=== PATIENT | male | born 1965 | race Caucasian/White ===

== ENCOUNTER 2022-01-14 20:29 | Inpatient (IN) | payer MEDICARE, MEDICAID, SELFPAY ==
[2022-01-14] VITALS (10 sets, daily range): BP systolic 121–147; BP diastolic 62–85; PULSE 100–109; RESP 12–20; TEMP 37; O2SAT 92–100; BMI 37.2
--- NOTE | 2022-01-14 20:49 | DI.RAD.S_ITS ---
PROCEDURE: XR CHEST 1V INDICATIONS: palpitations TECHNIQUE: One view of the chest was acquired. COMPARISON: [facility], CR, XR CHEST 1 VIEW, 01/12/2022, 13:21. FINDINGS: Surgical changes and devices: Left clavicle ORIF plate. Lungs and pleura: Lungs are clear. No pleural effusions or pneumothorax. Mediastinum: Mediastinal contours appear normal. Heart size is normal. Bones and chest wall: No suspicious bony lesions. Overlying soft tissues appear unremarkable. IMPRESSION: No acute cardiopulmonary process demonstrated radiographically. Dictated by: Denton Chairez M.D. on 01/14/2022 at 21:11 Approved by: Denton Chairez M.D. on 01/14/2022 at 21:12
--- NOTE | 2022-01-14 20:49 | DI.CT.S_ITS ---
PROCEDURE: CT HEAD/BRAIN WO CON INDICATIONS: fall with head injury on thinners TECHNIQUE: Noncontrast 4.5 mm thick angled axial sections acquired from the foramen magnum to the vertex, with coronal and sagittal reformats. For radiation dose reduction, the following was used: automated exposure control, adjustment of mA and/or kV according to patient size. COMPARISON: [facility], CT, CT HEAD WITHOUT CONTRAST, 01/12/2022, 13:14. FINDINGS: Image quality: Excellent. CSF spaces: Basal cisterns are patent. No extra-axial fluid collections. The ventricles are symmetric in size and shape. Brain: No intracranial bleeds or masses. There is cerebral volume loss for age, with resultant ventricular and sulcal prominence. There are periventricular and deep white matter chronic small vessel ischemic changes. There is intracranial internal carotid artery atherosclerosis. Skull and face: Calvarium and visualized facial bones appear intact, without suspicious lesions. Sinuses: Visualized sinuses and mastoids are clear. IMPRESSION: No acute intracranial finding. Moderate global cerebral volume loss and chronic microvascular ischemic changes similar to the prior study. Dictated by: Denton Chairez M.D. on 01/14/2022 at 21:19 Approved by: Denton Chairez M.D. on 01/14/2022 at 21:21
--- NOTE | 2022-01-14 20:56 | DI.RAD.S_ITS ---
PROCEDURE: XR HAND LT MIN 3V INDICATIONS: left thumb / hand pain and swelling from fall TECHNIQUE: 3 views of the hand(s) acquired. COMPARISON: None. FINDINGS: Comminuted, displaced, and angulated fracture of the left 1st metatarsal base involving the metaphysis and proximal diaphysis. There is no obvious intra-articular extension identified. Remaining bones intact. IMPRESSION: Comminuted, displaced, angulated left 1st metatarsal base fracture without definite intra-articular extension demonstrated. Dictated by: Denton Chairez M.D. on 01/14/2022 at 21:12 Approved by: Denton Chairez M.D. on 01/14/2022 at 21:13
--- NOTE | 2022-01-14 20:57 | ED.CHESTPAIN ---
HPI - Chest Pain General Chief Complaint: Chest Pain Stated Complaint: heart palpitations Time Seen by Provider: 01/14/22 20:49 Source: patient Mode of arrival: Ambulatory History of Present Illness HPI narrative: 56-year-old male nonsmoker with extensive alcohol history, atrial fibrillation on anticoagulation presents with agitation and palpitations. He normally drinks upwards of a 0.5 gal of liquor per day and had his last drink at 6:00 a.m.. He is had an extensive alcohol history and been drinking heavily for the past 35 years. He is had withdrawals on multiple occasions that have become quite severe at times including seizures. He is planning to enter an alcohol detox program next week and apparently has a bed waiting for him. Over the course of the day he is become increasingly agitated and fidgety. He is restless and has an increasing resting tremor. He has a headache and thinks he may have mild auditory and visual hallucinations. He has some generalized abdominal pain and occasional vomiting. Earlier today at some point he fell and struck the right side of his head and has an abrasion. Denies any loss of consciousness or neck pain. Additionally he has pain and swelling of his left thumb and states that it has been swollen for a couple of weeks but he thinks he injured it again when falling today. He is activated as a modified trauma given the fall with head injury while on anticoagulation Related Data Previous Rx's Medication Instructions Recorded clonazepam 1 mg tablet 1 mg PO BID ##21 01/23/12 atenolol 100 mg tablet (Tenormin) 100 mg PO Q DAY ##10 06/06/12 Allergies Allergy/AdvReac Type Severity Reaction Status Date / Time Erythromycin Allergy Unknown UNKNOWN Uncoded 09/27/17 12:14 Review of Systems Review of Systems Narrative: GENERAL: See HPI HEENT: Denies sinus pain, ear pain, sore throat, difficulty swallowing, dizziness. RESPIRATORY: Denies dyspnea, cough, wheezing, hemoptysis, sputum. CARDIOVASCULAR: See HPI GASTROINTESTINAL: See HPI : Denies dysuria, frequency, incontinence, hematuria, urinary retention. MUSCULOSKELETAL: See HPI SKIN: Denies rash, skin lesions, or other NEUROLOGIC: See HP PSYCHIATRIC: No concerning psychosocial issues. 12 point review of systems is negative except for those stated above Patient History alcohol intake frequency: 3 or more drinks per day Alcohol type: wine Substance Use Type: does not use Exam Narrative Exam Narrative: GENERAL: [56] year old patient appears older than stated age. Well-developed patient, appears ill, GCS 15 HEAD: Abrasion and contusion on right lateral head without hematoma, no evidence of depressed skull fracture EYES: Pupils equal round and reactive. No hyphema Extraocular motions intact. No scleral icterus. No injection or drainage. ENT: Nose without bleeding, purulent drainage. Throat without erythema, tonsillar hypertrophy or exudate. Airway patent. NECK: Trachea midline. Non tender CARDIOVASCULAR: Tachycardic and irregular rhythm without murmurs, gallops, or rubs. RESPIRATORY: Clear to auscultation. Breath sounds equal bilaterally. No wheezes, rales, or rhonchi. GASTROINTESTINAL: Abdomen soft, non-tender, nondistended. EXTREMITIES: Pain and swelling about left thumb and thenar eminence, no wrist or elbow pain. BACK: Nontender without deformity or crepitance. No flank tenderness. NEURO: AOx3. Cranial nerves 2-12 grossly intact, agitated anxious SKIN: No rash or erythema of visible areas Initial Vital Signs Initial Vital Signs: Vital Signs Temperature 98.6 F 01/14/22 20:40 Pulse Rate 100 H 01/14/22 20:40 Respiratory Rate 16 01/14/22 20:40 Blood Pressure 126/62 01/14/22 20:40 Pulse Oximetry 100 01/14/22 20:40 Oxygen Delivery Method 01/14/22 20:40 Procedures Central Line Placement Right IJ: Time Out Performed: Yes Patient Placed on Monitor/Pulse Ox: Yes MD Prep: mask, gown and gloves Central Line Prep: Chlorhexidine scrub and sterile drapes applied Local Anesthetic: lidocaine 1% Amount of anesthesia used (mL): 3 Ultrasound Used for Placement: Yes Central Line Lumen Inserted: triple Post Procedure: sutured in place, good blood return, all ports aspirated, flushed, capped and sterile dressing applied Post Procedure X-Ray: tip of catheter in good position and no pneumothorax seen Patient Tolerated Procedure: Well Complications: none Orthopedic Splinting/Casting Injury #1: Side: left Upper Extremity Injury Location: hand Upper Extremity Immobilizer: thumb spica Post splinting neuro exam: intact Post splinting vascular exam: intact Placed by: Provider Course Course Course Narrative: [facility] for Alcohol Withdrawal from [facility] on 01/14/2022 All calculations should be rechecked by clinician prior to use RESULT SUMMARY: 21 points Patients with scores >=0 frequently require medication for withdrawal, and may also require admission to the ICU for observation for seizures or development of delirium tremens, and more frequent medication dosing. INPUTS: Nausea/vomiting ?> 4 = Intermittent nausea with dry heaves Tremor ?> 4 = Moderate, with patient's arms extended Paroxysmal sweats ?> 4 = Beads of sweat obvious on forehead Anxiety ?> 4 = Moderately anxious, or guarded, so anxiety is inferred Agitation ?> 0 = Normal activity Tactile disturbances ?> 2 = Mild itching, pin and needles, burning, or numbness Auditory disturbances ?> 1 = Very mild harshness or ability to frighten Visual disturbances ?> 0 = Not present Headache/fullness in head ?> 2 = Mild Orientation/clouding of sensorium ?> 0 = Oriented, can do serial additions Orders Ordered: ED Orders 01/14/22 20:43 EKG-12 Lead Routine 01/14/22 20:49 CT head/brain wo con Stat XR chest 1V Stat 01/14/22 20:56 XR hand LT min 3V Stat 01/14/22 22:25 Complete Blood Count AUTO DIFF Stat Prothrombin Time INR Stat 01/14/22 23:15 Comprehensive Metabolic Panel Stat Lipase Stat NT-proBNP (BNP-Adult 18+) Stat Troponin & CK Cardiac Panel Stat 01/15/22 00:45 Urine Drug Screen, Rapid Stat 01/15/22 01:35 COVID19 -Nasal RAPID/Pre-Proc Stat 01/15/22 05:00 Basic Metabolic Panel Routine Complete Blood Count AUTO DIFF Routine Magnesium Routine Acetaminophen (Acetaminophen 325 Mg Tablet) 650 mg PO Q6HR PRN PRN Reason: Fever/Mild Pain (1-3) Hydrocodone Bitart/Acetaminophen (Hydrocodone/Acet 5/325 Tablet) 1 tab PO Q6HR PRN PRN Reason: Pain, Moderate (4-6) Last Admin: 01/15/22 03:33 Dose: 1 tab Documented By: RF Diphenhydramine HCl (Diphenhydramine 25 Mg Tablet) 25 mg PO Q6HR PRN PRN Reason: Itching Last Admin: 01/15/22 03:33 Dose: 25 mg Documented By: THERESE Folic Acid (Folic Acid 1 Mg Tablet) 1 mg PO DAILY [facility] Heparin Sodium (Porcine) (Heparin 5,000 Unit/Ml Vial) 5,000 unit SUBCUT BID [facility] Thiamine HCl 500 mg/ Sodium (Chloride) 255 mls @ 250 mls/hr IV TID [facility] Stop: 01/17/22 22:02 Last Admin: 01/15/22 04:49 Dose: 250 mls/hr Documented By: THERESE Metoprolol Tartrate (Metoprolol Ir 25 Mg Tablet) 75 mg PO BID [facility] Multivitamins (Multivitamin 1 Tablet) 1 tab PO DAILY [facility] Phenobarbital (Phenobarbital 65 Mg/Ml Vial) 130 mg IV Q30MIN PRN; Protocol PRN Reason: Alcohol Withdrawal Discontinued Medications Atenolol (Atenolol 50 Mg Tablet) 100 mg PO NOW ONE Stop: 01/15/22 01:23 Last Admin: 01/15/22 01:40 Dose: 100 mg Documented By: BECKA Sodium Chloride (Normal Saline 0.9%) 1,000 mls @ 1,000 mls/hr IV BOLUS ONE Stop: 01/14/22 21:48 Last Infusion: 01/15/22 00:43 Dose: 0 mls/hr Documented By: Admin: 01/14/22 22:21 Dose: 1,000 mls/hr Documented By: BECKA Thiamine HCl 200 mg/ Sodium (Chloride) 102 mls @ 408 mls/hr IV NOW ONE Stop: 01/14/22 20:50 Last Infusion: 01/14/22 23:01 Dose: 0 mls/hr Documented By: Admin: 01/14/22 22:26 Dose: 408 mls/hr Documented By: BECKA Sodium Chloride (Normal Saline 0.9%) 1,000 mls @ 1,000 mls/hr IV BOLUS ONE Stop: 01/15/22 02:02 Last Infusion: 01/15/22 02:17 Dose: 1,000 mls/hr Documented By: Admin: 01/15/22 01:40 Dose: 1,000 mls/hr Documented By: BECKA Phenobarbital (Phenobarbital 65 Mg/Ml Vial) 260 mg IV NOW ONE Stop: 01/14/22 20:57 Last Admin: 01/14/22 22:27 Dose: 260 mg Documented By: BECKA Phenobarbital (Phenobarbital 65 Mg/Ml Vial) 130 mg IV NOW ONE Stop: 01/15/22 00:56 Last Admin: 01/15/22 00:59 Dose: 130 mg Documented By: OTILIA Phenobarbital (Phenobarbital 65 Mg/Ml Vial) 130 mg IV Q30MIN PRN PRN Reason: Agitation Phenobarbital (Phenobarbital 32.4 Mg Tablet) 64.8 mg PO NOW ONE Stop: 01/15/22 03:07 Last Admin: 01/15/22 03:33 Dose: 64.8 mg Documented By: RF Consultations Consultation #1: Dr. Pineda happy to be involved in consultation, requests thumb spica place Consultation #2: hospitalist happy to accept Vital Signs Vital signs: Vital Signs - 8 hr 01/14/22 21:30 01/14/22 21:30 01/14/22 22:00 Temperature Pulse Rate 105 H 103 H Respiratory Rate 19 16 Blood Pressure 125/66 Pulse Oximetry 96 99 Oxygen Flow Rate 01/14/22 22:30 01/14/22 22:40 01/14/22 22:40 Temperature Pulse Rate 109 H 106 H Respiratory Rate 19 18 Blood Pressure 147/85 H Pulse Oximetry 98 Oxygen Flow Rate 01/14/22 23:00 01/14/22 23:00 01/14/22 23:30 Temperature Pulse Rate 109 H Respiratory Rate 18 Blood Pressure 133/76 122/68 Pulse Oximetry 94 Oxygen Flow Rate 01/14/22 23:30 01/15/22 00:00 01/15/22 00:00 Temperature Pulse Rate 107 H 110 H Respiratory Rate 20 20 Blood Pressure 116/76 Pulse Oximetry 92 93 Oxygen Flow Rate 01/15/22 00:30 01/15/22 00:31 01/15/22 00:31 Temperature Pulse Rate 106 H 115 H Respiratory Rate 16 17 Blood Pressure 146/81 H Pulse Oximetry 97 98 Oxygen Flow Rate 01/15/22 01:00 01/15/22 01:01 01/15/22 01:20 Temperature Pulse Rate 111 H 110 H Respiratory Rate 23 22 Blood Pressure 181/116 H Pulse Oximetry 99 98 Oxygen Flow Rate 01/15/22 01:20 01/15/22 01:30 01/15/22 01:30 Temperature Pulse Rate 112 H Respiratory Rate 19 Blood Pressure 170/121 H 183/88 H Pulse Oximetry 96 Oxygen Flow Rate 01/15/22 02:15 Temperature 99.1 F Pulse Rate 100 H Respiratory Rate 16 Blood Pressure 144/91 H Pulse Oximetry 99 Oxygen Flow Rate 0 MDM - Chest Pain Lab Data Result diagrams: 01/14/22 22:25 01/14/22 23:15 Labs: Lab Results 01/14/22 01/14/22 01/14/22 Range/Units 22:25 22:25 23:15 WBC 6.8 (4.5-11.0) X10^3/uL RBC 3.87 L (4.5-5.9) X10^6/uL Hgb 11.6 L (13.5-17.5) g/dL Hct 34.5 L (41-53) % MCV 89.2 (80-100) fL MCH 30.1 (26-34) PG MCHC 33.7 (30-36) % RDW 15.6 H (11.6-14.8) % Plt Count 387 (150-400) X10^3/uL Neut % (Auto) 65.2 (50-75) % Lymph % (Auto) 19.7 L (25-40) % [place] % (Auto) 8.3 (3-14) % Eos % (Auto) 5.8 H (2-4) % Baso % (Auto) 1.0 (0-2) % Neut # (Auto) 4400 (5784-8170) /uL Lymph # (Auto) 1300 (8562-9370) /uL [place] # (Auto) 600 (0-900) /uL Eos # (Auto) 400 (0-450) /uL Baso # (Auto) 100 (0-100) /uL PT 12.7 (10.1-12.7) SECONDS INR 1.1 (0.9-1.3) Sodium 139 (137-145) mmol/L Potassium 3.8 (3.4-5.1) mmol/L Chloride 104 (98-107) mmol/L Carbon Dioxide 26 (22-32) mmol/L BUN 3 L (9-20) mg/dL Creatinine 0.47 L (0.66-1.25) mg/dL Estimated GFR > 60 (>60) mL/min BUN/Creatinine Ratio 6.4 (6-22) Glucose 96 (70-100) mg/dL Calcium 7.7 L (8.4-10.2) mg/dL Total Bilirubin 0.3 (0.2-1.3) mg/dL AST 36 (17-59) IU/L ALT 19 (<50) IU/L Alkaline Phosphatase 90 (38-126) U/L Total Creatine Kinase 77 (55-170) U/L CK-MB (CK-2) TNP CK-MB (CK-2) Rel Index TNP Troponin I < 0.012 (0.01-0.034) ng/mL NT-Pro-B Natriuret Pep 612 H (<125) pg/mL Total Protein 6.2 L (6.3-8.2) g/dL Albumin 3.6 (3.5-5.0) g/dL Globulin 2.6 (1.7-4.1) g/dL Albumin/Globulin Ratio 1.4 (1.0-2.8) Lipase 83 (23-300) U/L Nasal Screen MRSA (PCR) (Negative) U Opiates 300ng/mL cut (Negative) Ur Oxycodone Screen (Negative) Urine Methadone Screen (Negative) Ur Barbiturates Screen (Negative) U Tricyclic Antidepress (Negative) Ur Phencyclidine Scrn (Negative) Ur Amphetamines Screen (Negative) U Methamphetamines Scrn (Negative) Ur MDMA Scrn (Ecstasy) (Negative) U Benzodiazepines Scrn (Negative) Urine Cocaine Screen (Negative) U Marijuana (THC) Screen (Negative) SARS-CoV-2 (PCR) (Negative) 01/15/22 01/15/22 01/15/22 Range/Units 00:45 01:35 02:15 WBC (4.5-11.0) X10^3/uL RBC (4.5-5.9) X10^6/uL Hgb (13.5-17.5) g/dL Hct (41-53) % MCV (80-100) fL MCH (26-34) PG MCHC (30-36) % RDW (11.6-14.8) % Plt Count (150-400) X10^3/uL Neut % (Auto) (50-75) % Lymph % (Auto) (25-40) % [place] % (Auto) (3-14) % Eos % (Auto) (2-4) % Baso % (Auto) (0-2) % Neut # (Auto) (1037-3199) /uL Lymph # (Auto) (4237-8873) /uL [place] # (Auto) (0-900) /uL Eos # (Auto) (0-450) /uL Baso # (Auto) (0-100) /uL PT (10.1-12.7) SECONDS INR (0.9-1.3) Sodium (137-145) mmol/L Potassium (3.4-5.1) mmol/L Chloride (98-107) mmol/L Carbon Dioxide (22-32) mmol/L BUN (9-20) mg/dL Creatinine (0.66-1.25) mg/dL Estimated GFR (>60) mL/min BUN/Creatinine Ratio (6-22) Glucose (70-100) mg/dL Calcium (8.4-10.2) mg/dL Total Bilirubin (0.2-1.3) mg/dL AST (17-59) IU/L ALT (<50) IU/L Alkaline Phosphatase (38-126) U/L Total Creatine Kinase (55-170) U/L CK-MB (CK-2) CK-MB (CK-2) Rel Index Troponin I (0.01-0.034) ng/mL NT-Pro-B Natriuret Pep (<125) pg/mL Total Protein (6.3-8.2) g/dL Albumin (3.5-5.0) g/dL Globulin (1.7-4.1) g/dL Albumin/Globulin Ratio (1.0-2.8) Lipase (23-300) U/L Nasal Screen MRSA (PCR) Negative for mrsa (Negative) U Opiates 300ng/mL cut Negative (Negative) Ur Oxycodone Screen Negative (Negative) Urine Methadone Screen Negative (Negative) Ur Barbiturates Screen Positive H (Negative) U Tricyclic Antidepress Negative (Negative) Ur Phencyclidine Scrn Negative (Negative) Ur Amphetamines Screen Negative (Negative) U Methamphetamines Scrn Negative (Negative) Ur MDMA Scrn (Ecstasy) Negative (Negative) U Benzodiazepines Scrn Positive H (Negative) Urine Cocaine Screen Negative (Negative) U Marijuana (THC) Screen Negative (Negative) SARS-CoV-2 (PCR) Negative (Negative) Urine Dip Bedside Urine Glucose Negative Bedside Urine Bilirubin - Negative Bedside Urine Ketone - Negative Urine Specific [place] 1.015 Bedside Urine Occult Blood - Negative Bedside Urine pH 6 Bedside Urine Protein - Negative Bedside Urine Urobilinogen - Negative Bedside Urine Nitrite - Negative Bedside Urine Leukocytes - Negative Esterase ECG Data Interpretation: AFib with rate of 107 no other ectopy or evidence of ischemia. Discharge Plan Departure Patient Disposition: Admitted As Inpatient Clinical Impression: Alcohol withdrawal, Fracture of thumb, left, closed Admit Date/Time: 01/15/22 02:17 Admit Provider: Saul Mcdaniels
[2022-01-14] MEDS: SODIUM CHLORIDE 0.9% 1,000 ML 1000 ML IV (22:21)
[2022-01-14] MEDS: THIAMINE 200 MG in SODIUM CHLORIDE 0.9% 100 ML 408 MG IV (22:26)
[2022-01-14] MEDS: PHENobarbital 65 MG/ML VIAL 260 MG IV (22:27)
[2022-01-14 22:47] LABS: INR 1.1 (0.9-1.3); Prothrombin Time 12.7 SECONDS (10.1-12.7)
[2022-01-14 22:49] LABS: Add Manual Diff / Slide Review NO; Basophils Absolute Auto 100 /uL (0-100); Eosinophils Absolute Auto 400 /uL (0-450); Eosinophils Percent Auto 5.8 % (2-4); Hematocrit 34.5 % (41-53); Hemoglobin 11.6 g/dL (13.5-17.5); Lymphocytes Absolute Auto 1300 /uL (1100-4500); Lymphocytes Percent Auto 19.7 % (25-40); Mean Corpuscular HGB Conc 33.7 % (30-36); Mean Corpuscular Hemoglobin 30.1 PG (26-34); Mean Corpuscular Volume 89.2 fL (80-100); Monocytes Absolute Auto 600 /uL (0-900); Monocytes Percent Auto 8.3 % (3-14); Neutrophils Absolute Auto 4400 /uL (1500-7000); Neutrophils Percent Auto 65.2 % (50-75); Platelet Count 387 X10^3/uL (150-400); Red Blood Cell Count 3.87 X10^6/uL (4.5-5.9); Red Cell Distribution Width 15.6 % (11.6-14.8); White Blood Cell Count 6.8 X10^3/uL (4.5-11.0)
[2022-01-14 23:31] LABS: Alanine Aminotransferase 19 IU/L (<50); Albumin 3.6 g/dL (3.5-5.0); Albumin Globulin Ratio 1.4 (1.0-2.8); Alkaline Phosphatase 90 U/L (38-126); Aspartate Aminotransferase 36 IU/L (17-59); BUN Creatinine Ratio 6.4 (6-22); Bilirubin Total 0.3 mg/dL (0.2-1.3); Blood Urea Nitrogen 3 mg/dL (9-20); Calcium 7.7 mg/dL (8.4-10.2); Carbon Dioxide 26 mmol/L (22-32); Chloride 104 mmol/L (98-107); Creatine Kinase 77 U/L (55-170); Estimated Glomerular Filt Rate > 60 mL/min (>60); Globulin 2.6 g/dL (1.7-4.1); Glucose 96 mg/dL (70-100); HEMOLYSIS < 15 (0-50); Lipase 83 U/L (23-300); Potassium 3.8 mmol/L (3.4-5.1); Sodium 139 mmol/L (137-145); Total Protein 6.2 g/dL (6.3-8.2)
[2022-01-14 23:43] LABS: NT-proBNP (BNP-Adult 18+) 612 pg/mL (<125); Troponin I < 0.012 ng/mL (0.01-0.034)
[2022-01-15] VITALS (66 sets, daily range): BP systolic 93–183; BP diastolic 58–121; PULSE 82–115; RESP 12–39; TEMP 36.1–37.3; O2SAT 92–99; BMI 37.2
[2022-01-15] MEDS: PHENobarbital 65 MG/ML VIAL 130 MG IV ×5 (00:59→23:34)
[2022-01-15 01:05] LABS: UR Morphine/Opiate cutoff 300 Negative (Negative); Ur Creatinine 20 (Normal); Ur Specific Gravity 1.025 (Normal); Urine Amphetamines Negative (Negative); Urine Barbiturates Positive (Negative); Urine Benzodiazepines Positive (Negative); Urine Cocaine Negative (Negative); Urine MDMA Negative (Negative); Urine Methamphetamines Negative (Negative); Urine Phencyclidine Negative (Negative); Urine Tetrahydrocannabinol Negative (Negative); Urine pH 5 (Normal)
[2022-01-15 01:06] LABS: Urine Methadone Negative (Negative); Urine Oxycodone Negative (Negative); Urine Tricyclic Antidepressant Negative (Negative)
[2022-01-15] MEDS: atenoloL 50 MG TABLET 100 MG PO (01:40)
[2022-01-15] MEDS: SODIUM CHLORIDE 0.9% 1,000 ML 1000 ML IV (01:40)
[2022-01-15 01:58] LABS: COVID19 -Nasal RAPID Negative (Negative)
--- NOTE | 2022-01-15 02:40 | P.HP_ITS ---
History of Present Illness History of Present Illness Date Patient Seen: 01/15/22 Time Patient Seen: 02:00 Chief complaint: heart palpitations Narrative: Mr. Christianson is a 56M with long history of alcohol abuse, complicated by seizures, previous intubation, and possibly DTs previously who presents with agitation. He drinks significant amounts of alcohol every day, over a fifth of vodka, and likely over half a gallon of vodka daily. He has been drinking for over 30 years. He has been to rehab. He has had withdrawal with seizures, intubation, and hallucinations in the past. Apparently he has some sort of detox program setup for next week, but he appears currently intoxicated and his details are inconsistent. He decided to stop drinking today at 6am was his last drink. He has become agitated, with nausea, sweaty, headache. He has had occasional vomiting. He has had a fall, but is not clear if it happened today or a few days ago and he hit his head and injured his left thumb. In the ED workup was done, vitals notable for tachycardia. Labs notable for WBC 6.8, hgb 11.6, plts 387. Creatinine 0.47. Chest xray showed no acute process. CT head showed no acute process. Hand xray showed left displaced 1st metatarsal fracture. He was ordered for phenobarb and this provided some relief of his symptoms. Family history: asked and patient stated no family members with medical history Social history: at least a fifth of vodka daily, tobacco use daily Patient History Family & Social History Safety & Behavioral: Feels Safe in Current Yes Environment Been Physically Hurt or No Threatened By a Person Tobacco & Substance use: alcohol intake frequency 3 or more drinks per day Substance Use Type does not use Meds Home Medications and Allergies Home Medications Medication Instructions Recorded Confirmed Type clonazepam 1 mg tablet 1 mg PO BID ##21 01/23/12 01/15/22 Rx atenolol 100 mg tablet (Tenormin) 100 mg PO Q DAY ##10 06/06/12 01/15/22 Rx Allergies Allergy/AdvReac Type Severity Reaction Status Date / Time Erythromycin Allergy Unknown UNKNOWN Uncoded 09/27/17 12:14 Review of Systems Review of Systems Narrative: 14 systems reviewed and negative aside from what is noted in HPI Exam Vital Signs (past 8 hours): - 01/14/22 20:40 01/14/22 20:53 01/14/22 20:53 Temperature 98.6 F Pulse Rate 100 H 109 H Respiratory Rate 16 12 Blood Pressure 126/62 121/72 Pulse Oximetry 100 97 Oxygen Delivery Method Room Air Oxygen Flow Rate 01/14/22 21:00 01/14/22 21:00 01/14/22 21:12 Temperature Pulse Rate 102 H 108 H Respiratory Rate 17 18 Blood Pressure 123/80 Pulse Oximetry 98 98 Oxygen Delivery Method Oxygen Flow Rate 01/14/22 21:12 01/14/22 21:30 01/14/22 21:30 Temperature Pulse Rate 105 H Respiratory Rate 19 Blood Pressure 128/81 125/66 Pulse Oximetry 96 Oxygen Delivery Method Oxygen Flow Rate 01/14/22 22:00 01/14/22 22:30 01/14/22 22:40 Temperature Pulse Rate 103 H 109 H 106 H Respiratory Rate 16 19 18 Blood Pressure Pulse Oximetry 99 98 Oxygen Delivery Method Oxygen Flow Rate 01/14/22 22:40 01/14/22 23:00 01/14/22 23:00 Temperature Pulse Rate 109 H Respiratory Rate 18 Blood Pressure 147/85 H 133/76 Pulse Oximetry 94 Oxygen Delivery Method Oxygen Flow Rate 01/14/22 23:30 01/14/22 23:30 01/15/22 00:00 Temperature Pulse Rate 107 H Respiratory Rate 20 Blood Pressure 122/68 116/76 Pulse Oximetry 92 Oxygen Delivery Method Oxygen Flow Rate 01/15/22 00:00 01/15/22 00:30 01/15/22 00:31 Temperature Pulse Rate 110 H 106 H 115 H Respiratory Rate 20 16 17 Blood Pressure Pulse Oximetry 93 97 98 Oxygen Delivery Method Oxygen Flow Rate 01/15/22 00:31 01/15/22 01:00 01/15/22 01:01 Temperature Pulse Rate 111 H Respiratory Rate 23 Blood Pressure 146/81 H 181/116 H Pulse Oximetry 99 Oxygen Delivery Method Oxygen Flow Rate 01/15/22 01:20 01/15/22 01:20 01/15/22 01:30 Temperature Pulse Rate 110 H Respiratory Rate 22 Blood Pressure 170/121 H 183/88 H Pulse Oximetry 98 Oxygen Delivery Method Oxygen Flow Rate 01/15/22 01:30 01/15/22 02:15 Temperature 99.1 F Pulse Rate 112 H 100 H Respiratory Rate 19 16 Blood Pressure 144/91 H Pulse Oximetry 96 99 Oxygen Delivery Method Oxygen Flow Rate 0 Oxygen Delivery Method Room Air Oxygen Flow Rate 0 Narrative Exam Narrative: GEN: irritable, tremulous HEENT: moist mucous membranes, PERRL, abrasion over right side of forehead NECK: trachea midline, no JVD PULM: clear bilaterally CV: irregular, tachycardic ABD: soft, nontender, nondistended, no organomegaly EXT: warm and well perfused with no edema, left hand and especially thumb swelling NEURO: awake alert, intoxicated, irritable, anxious, no focal deficits Objective Labs Result Diagrams: 01/14/22 22:25 01/14/22 23:15 Labs: Laboratory Results - last 24 hr 01/14/22 01/14/22 01/14/22 22:25 22:25 23:15 WBC 6.8 RBC 3.87 L Hgb 11.6 L Hct 34.5 L MCV 89.2 MCH 30.1 MCHC 33.7 RDW 15.6 H Plt Count 387 Neut % (Auto) 65.2 Lymph % (Auto) 19.7 L [place] % (Auto) 8.3 Eos % (Auto) 5.8 H Baso % (Auto) 1.0 Neut # (Auto) 4400 Lymph # (Auto) 1300 [place] # (Auto) 600 Eos # (Auto) 400 Baso # (Auto) 100 PT 12.7 INR 1.1 Sodium 139 Potassium 3.8 Chloride 104 Carbon Dioxide 26 BUN 3 L Creatinine 0.47 L Estimated GFR > 60 BUN/Creatinine Ratio 6.4 Glucose 96 Calcium 7.7 L Total Bilirubin 0.3 AST 36 ALT 19 Alkaline Phosphatase 90 Total Creatine Kinase 77 CK-MB (CK-2) TNP CK-MB (CK-2) Rel Index TNP Troponin I < 0.012 NT-Pro-B Natriuret Pep 612 H Total Protein 6.2 L Albumin 3.6 Globulin 2.6 Albumin/Globulin Ratio 1.4 Lipase 83 U Opiates 300ng/mL cut Ur Oxycodone Screen Urine Methadone Screen Ur Barbiturates Screen U Tricyclic Antidepress Ur Phencyclidine Scrn Ur Amphetamines Screen U Methamphetamines Scrn Ur MDMA Scrn (Ecstasy) U Benzodiazepines Scrn Urine Cocaine Screen U Marijuana (THC) Screen SARS-CoV-2 (PCR) 01/15/22 01/15/22 00:45 01:35 WBC RBC Hgb Hct MCV MCH MCHC RDW Plt Count Neut % (Auto) Lymph % (Auto) [place] % (Auto) Eos % (Auto) Baso % (Auto) Neut # (Auto) Lymph # (Auto) [place] # (Auto) Eos # (Auto) Baso # (Auto) PT INR Sodium Potassium Chloride Carbon Dioxide BUN Creatinine Estimated GFR BUN/Creatinine Ratio Glucose Calcium Total Bilirubin AST ALT Alkaline Phosphatase Total Creatine Kinase CK-MB (CK-2) CK-MB (CK-2) Rel Index Troponin I NT-Pro-B Natriuret Pep Total Protein Albumin Globulin Albumin/Globulin Ratio Lipase U Opiates 300ng/mL cut Negative Ur Oxycodone Screen Negative Urine Methadone Screen Negative Ur Barbiturates Screen Positive H U Tricyclic Antidepress Negative Ur Phencyclidine Scrn Negative Ur Amphetamines Screen Negative U Methamphetamines Scrn Negative Ur MDMA Scrn (Ecstasy) Negative U Benzodiazepines Scrn Positive H Urine Cocaine Screen Negative U Marijuana (THC) Screen Negative SARS-CoV-2 (PCR) Negative Assessment & Plan Assessment & Plan narrative: Mr. Christianson is a 56M with alcohol abuse, afib, who presents with alcohol withdrawal after abruptly stopping drinking. 1. Alcohol withdrawal and alcohol abuse -has significant alcohol abuse history and is high risk of withdrawal as he acknowledges seizures and being intubated during previous withdrawal -he is interested in detox -he has improved symptomatically with IV phenobarb -IV ativan currently on shortage, will continue with IV phenobarb for withdrawal -ordered MVI, folate, high dose thiamine -SW consult in AM 2. Thumb fracture -secondary to fall -splint to be placed 3. Atrial fibrillation with RVR -acknowledges nonadherence to meds when drinking -check magnesium -has atenolol and metoprolol listed as meds -will continue metoprolol for now 4. Tobacco abuse -declines nicotine patch CODE: Full Proxy: Kenya Zhang, mother I have utilized all available resources to reconcile the patient's home medications. Time Spent With Patient Critical Care time: I spent a total of [] minutes of critical care time on this patient's care today; this time is exclusive of procedural time. Quality MIPS - Admit I confirm the patient?s Advance Care Plan is present, Code status is documented, Surrogate decision maker is in patient?s record [If Yes, STOP here]: Yes
[2022-01-15] MEDS: PHENobarbitaL 32.4 MG TABLET 64.8 MG PO (03:33)
[2022-01-15] MEDS: HYDROCODONE/ACET 5/325 TABLET 1 TAB PO ×3 (03:33→23:04)
[2022-01-15] MEDS: diphenhydrAMINE 25 MG TABLET PO ×3 (03:33→21:10)
--- NOTE | 2022-01-15 04:21 | DI.RAD.S_ITS ---
PROCEDURE: XR CHEST 1V INDICATIONS: R IJ placement TECHNIQUE: One view of the chest was acquired. COMPARISON: [facility], CR, XR CHEST 1 VIEW, 01/12/2022, 13:21. [facility], CR, XR CHEST 1V, 01/14/2022, 20:50. FINDINGS: Surgical changes and devices: A right-sided central line has been placed, with the tip overlying the right atrium, 4-5 cm below the cavoatrial junction. Left clavicle hardware again seen. Lungs and pleura: An incomplete inspiratory result is noted, causing a crowded appearance to the lung markings. No focal infiltrates are seen. No pneumothorax or significant pleural effusions are seen. Mediastinum: Mediastinal contours appear normal. Heart size is normal. Bones and chest wall: No suspicious bony lesions. Overlying soft tissues appear unremarkable. IMPRESSION: The tip of the newly placed right-sided central line overlies the right atrium. Please correlate with procedural intent. If clinically appropriate, please withdraw 6-7 centimeters. Note: No significant discrepancy from the preliminary report. Dictated by: Kenny Machado M.D. on 01/15/2022 at 8:04 Approved by: Kenny Machado M.D. on 01/15/2022 at 8:08
[2022-01-15] MEDS: SODIUM CHLORIDE 0.9% IV ×3 (04:49→20:14)
[2022-01-15] MEDS: THIAMINE IV ×3 (04:49→20:14)
--- NOTE | 2022-01-15 05:32 | PC.NURSE ---
Shift Note: At 0300 patient brought in from ED by stretcher, alert and orientedx4, at room air, vital signs are stable, denies shortness of breath and complaint of pain at left thumb PS 6/10, Dr. Mcdaniels notified. CIWA was done score of 16, patient complained of nausea and headache with some visual hallucinations, slightly restless. Bilateral breath sounds are clear. Active bowel tones. Urinal at bedside. Seizures pad applied, safety precautions maintained, call dozier within reach. At 033, IV access at right wrist got infiltrated and taken out, attempted to reinsert IV line multiple times but unsuccessful. Dr. Mcdaniels notified. At 041, ED Dr Handy came in and inserted a triple lumen cath at right IJ aseptically, central line dressing applied and placement was verified by chest xray and can be use as per Dr. Handy and Dr. Mcdaniels. Will continue to monitor.
[2022-01-15 07:59] LABS: Add Manual Diff / Slide Review NO; Basophils Absolute Auto 200 /uL (0-100); Basophils Percent Auto 3.4 % (0-2); Eosinophils Absolute Auto 400 /uL (0-450); Eosinophils Percent Auto 7.2 % (2-4); Hematocrit 33.4 % (41-53); Hemoglobin 11.4 g/dL (13.5-17.5); Lymphocytes Absolute Auto 1900 /uL (1100-4500); Lymphocytes Percent Auto 33.4 % (25-40); Mean Corpuscular Hemoglobin 30.5 PG (26-34); Mean Corpuscular Volume 89.6 fL (80-100); Monocytes Absolute Auto 600 /uL (0-900); Monocytes Percent Auto 9.5 % (3-14); Neutrophils Absolute Auto 2700 /uL (1500-7000); Neutrophils Percent Auto 46.5 % (50-75); Platelet Count 367 X10^3/uL (150-400); Red Blood Cell Count 3.73 X10^6/uL (4.5-5.9); Red Cell Distribution Width 15.5 % (11.6-14.8); White Blood Cell Count 5.8 X10^3/uL (4.5-11.0)
[2022-01-15] MEDS: FOLIC ACID 1 MG TABLET PO (08:06)
[2022-01-15] MEDS: HEPARIN 5,000 UNIT/ML VIAL 5000 UNIT SUBCUT ×2 (08:06→20:19)
[2022-01-15] MEDS: METOPROLOL IR 25 MG TABLET 75 MG PO ×2 (08:06→20:19)
[2022-01-15] MEDS: MULTIVITAMIN 1 TABLET 1 TAB PO (08:06)
--- NOTE | 2022-01-15 08:08 | P.CONS_ITS ---
History of Present Illness Consult details Date Patient Seen: 01/15/22 Time Patient Seen: 08:09 Chief complaint: heart palpitations Reason for consult: Left thumb fracture Requesting provider: Daniele Handy Narrative: 56-year-old [id number] male with a significant past medical history for alcohol use. Heavy drinker greater than 1/5 of vodka per day possibly as much as a half a gal. History of possible DTs. History of seizures. Conrad had a fall yesterday when walking at [employer]. States he just tripped. Although there is some mentioned in the medical record the the timeline of the fall is not quite clear. He endorses some pain in his left thumb and was found to have a extra-articular 1st metacarpal base fracture. He was placed in a thumb spica. Does have some superficial abrasions on his head. Complains mostly of itchy mosquito bites. Has a history of a left clavicle ORIF and ORIF of both fibulas for prior injuries. Denies any numbness or tingling. Denies any elbow or shoulder pain. Meds Home Medications and Allergies Home Medications Medication Instructions Recorded Confirmed Type clonazepam 1 mg tablet 1 mg PO BID ##21 01/23/12 01/15/22 Rx atenolol 100 mg tablet (Tenormin) 100 mg PO Q DAY ##10 06/06/12 01/15/22 Rx Allergies Allergy/AdvReac Type Severity Reaction Status Date / Time Erythromycin Allergy Unknown UNKNOWN Uncoded 09/27/17 12:14 Review of Systems Review of Systems Narrative: Endorses itching from mosquito bites. Heart palpitations complained of nausea dizziness in the ER. Otherwise negative 10 point review of systems except for H PI Exam Vital Signs (past 8 hours): - 01/15/22 00:30 01/15/22 00:31 01/15/22 00:31 Temperature Pulse Rate 106 H 115 H Respiratory Rate 16 17 Blood Pressure 146/81 H Pulse Oximetry 97 98 Oxygen Delivery Method Oxygen Flow Rate 01/15/22 01:00 01/15/22 01:01 01/15/22 01:20 Temperature Pulse Rate 111 H 110 H Respiratory Rate 23 22 Blood Pressure 181/116 H Pulse Oximetry 99 98 Oxygen Delivery Method Oxygen Flow Rate 01/15/22 01:20 01/15/22 01:30 07/30/22 01:30 Temperature Pulse Rate 112 H Respiratory Rate 19 Blood Pressure 170/121 H 183/88 H Pulse Oximetry 96 Oxygen Delivery Method Oxygen Flow Rate 01/15/22 02:15 01/15/22 03:00 01/15/22 05:43 Temperature 99.1 F 97.2 F L Pulse Rate 100 H 93 H Respiratory Rate 16 21 Blood Pressure 144/91 H 134/73 Pulse Oximetry 99 94 Oxygen Delivery Method Room Air Oxygen Flow Rate 0 0 01/15/22 07:51 Temperature 98.2 F Pulse Rate 97 H Respiratory Rate 16 Blood Pressure 126/77 Pulse Oximetry 97 Oxygen Delivery Method Oxygen Flow Rate 0 Oxygen Delivery Method Room Air Oxygen Flow Rate 0 Narrative Exam Narrative: Alert male answers questions, cooperative in a hospital bed today. Respiratory unlabored on room air Heart exam. Borderline tachycardic Skin exam superficial abrasions around the forehead and extremities Musculoskeletal exam thumb spica splint on the left hand. Endorses sensation intact median radial ulnar nerves. Wiggles other fingers on the hand demonstrate flexion extension. Full range of motion of the elbow. No tenderness to palpation about the elbow or shoulder. Range of motion of the right upper extremity. Full range of motion and no tenderness to palpation of b ilateral lower extremities. Objective Imaging Left hand three views x-ray: My impression: AP oblique and lateral images left hand and thumb demonstrate mildly comminuted extra-articular basal 1st metacarpal fracture no apparent intra-articular extension Radiologist's impression: IMPRESSION: Comminuted, displaced, angulated left 1st metatarsal base fracture without definite intra-articular extension demonstrated. Dictated by: Denton Chairez M.D. on 01/14/2022 at 21:12 Labs Result Diagrams: 01/15/22 07:45 01/14/22 23:15 Labs: Laboratory Results - last 24 hr 01/14/22 01/14/22 01/14/22 22:25 22:25 23:15 WBC 6.8 RBC 3.87 L Hgb 11.6 L Hct 34.5 L MCV 89.2 MCH 30.1 MCHC 33.7 RDW 15.6 H Plt Count 387 Neut % (Auto) 65.2 Lymph % (Auto) 19.7 L [place] % (Auto) 8.3 Eos % (Auto) 5.8 H Baso % (Auto) 1.0 Neut # (Auto) 4400 Lymph # (Auto) 1300 [place] # (Auto) 600 Eos # (Auto) 400 Baso # (Auto) 100 PT 12.7 INR 1.1 Sodium 139 Potassium 3.8 Chloride 104 Carbon Dioxide 26 BUN 3 L Creatinine 0.47 L Estimated GFR > 60 BUN/Creatinine Ratio 6.4 Glucose 96 Calcium 7.7 L Total Bilirubin 0.3 AST 36 ALT 19 Alkaline Phosphatase 90 Total Creatine Kinase 77 CK-MB (CK-2) TNP CK-MB (CK-2) Rel Index TNP Troponin I < 0.012 NT-Pro-B Natriuret Pep 612 H Total Protein 6.2 L Albumin 3.6 Globulin 2.6 Albumin/Globulin Ratio 1.4 Lipase 83 Nasal Screen MRSA (PCR) U Opiates 300ng/mL cut Ur Oxycodone Screen Urine Methadone Screen Ur Barbiturates Screen U Tricyclic Antidepress Ur Phencyclidine Scrn Ur Amphetamines Screen U Methamphetamines Scrn Ur MDMA Scrn (Ecstasy) U Benzodiazepines Scrn Urine Cocaine Screen U Marijuana (THC) Screen SARS-CoV-2 (PCR) 01/15/22 01/15/22 01/15/22 00:45 01:35 02:15 WBC RBC Hgb Hct MCV MCH MCHC RDW Plt Count Neut % (Auto) Lymph % (Auto) [place] % (Auto) Eos % (Auto) Baso % (Auto) Neut # (Auto) Lymph # (Auto) [place] # (Auto) Eos # (Auto) Baso # (Auto) PT INR Sodium Potassium Chloride Carbon Dioxide BUN Creatinine Estimated GFR BUN/Creatinine Ratio Glucose Calcium Total Bilirubin AST ALT Alkaline Phosphatase Total Creatine Kinase CK-MB (CK-2) CK-MB (CK-2) Rel Index Troponin I NT-Pro-B Natriuret Pep Total Protein Albumin Globulin Albumin/Globulin Ratio Lipase Nasal Screen MRSA (PCR) Negative for mrsa U Opiates 300ng/mL cut Negative Ur Oxycodone Screen Negative Urine Methadone Screen Negative Ur Barbiturates Screen Positive H U Tricyclic Antidepress Negative Ur Phencyclidine Scrn Negative Ur Amphetamines Screen Negative U Methamphetamines Scrn Negative Ur MDMA Scrn (Ecstasy) Negative U Benzodiazepines Scrn Positive H Urine Cocaine Screen Negative U Marijuana (THC) Screen Negative SARS-CoV-2 (PCR) Negative 01/15/22 07:45 WBC 5.8 RBC 3.73 L Hgb 11.4 L Hct 33.4 L MCV 89.6 MCH 30.5 MCHC 34.0 RDW 15.5 H Plt Count 367 Neut % (Auto) 46.5 L Lymph % (Auto) 33.4 [place] % (Auto) 9.5 Eos % (Auto) 7.2 H Baso % (Auto) 3.4 H Neut # (Auto) 2700 Lymph # (Auto) 1900 [place] # (Auto) 600 Eos # (Auto) 400 Baso # (Auto) 200 H PT INR Sodium Potassium Chloride Carbon Dioxide BUN Creatinine Estimated GFR BUN/Creatinine Ratio Glucose Calcium Total Bilirubin AST ALT Alkaline Phosphatase Total Creatine Kinase CK-MB (CK-2) CK-MB (CK-2) Rel Index Troponin I NT-Pro-B Natriuret Pep Total Protein Albumin Globulin Albumin/Globulin Ratio Lipase Nasal Screen MRSA (PCR) U Opiates 300ng/mL cut Ur Oxycodone Screen Urine Methadone Screen Ur Barbiturates Screen U Tricyclic Antidepress Ur Phencyclidine Scrn Ur Amphetamines Screen U Methamphetamines Scrn Ur MDMA Scrn (Ecstasy) U Benzodiazepines Scrn Urine Cocaine Screen U Marijuana (THC) Screen SARS-CoV-2 (PCR) [facility] Tobacco & Substance Use alcohol intake: current Assessment & Plan Assessment and plan (1) Fracture of thumb, left, closed: Problem details: Extra-articular left basal thumb 1st metacarpal fracture. Extra-articular. Non operative treatment and thumb spica splint. Can be seen in [facility] in 1-2 weeks for transition to thumb spica cast. Recommend 6 weeks thumb spica immobilization Status: Acute (2) Alcohol withdrawal: Status: Acute Plan: Management per medical team COVID-19 COVID-19 status: Negative Time Spent With Patient Time with patient: less than 30 minutes Critical Care time: I spent a total of [] minutes of critical care time on this patient's care today; this time is exclusive of procedural time.
[2022-01-15 08:24] LABS: BUN Creatinine Ratio 5.6 (6-22); Blood Urea Nitrogen 3 mg/dL (9-20); Calcium 7.9 mg/dL (8.4-10.2); Carbon Dioxide 31 mmol/L (22-32); Chloride 104 mmol/L (98-107); Estimated Glomerular Filt Rate > 60 mL/min (>60); Glucose 93 mg/dL (70-100); HEMOLYSIS 15 (0-50); Magnesium 1.7 mg/dL (1.6-2.3); Potassium 4.2 mmol/L (3.4-5.1); Sodium 136 mmol/L (137-145)
[2022-01-15] MEDS: NICOTINE 7 MG PATCH TOP (09:16)
[2022-01-15] MEDS: SODIUM CHLORIDE 0.9% 1,000 ML 100 ML IV ×2 (09:20→20:16)
[2022-01-15] MEDS: chlordiazePOXIDE 25 MG CAPSULE 50 MG PO ×3 (11:25→23:04)
[2022-01-15] MEDS: LORazepam 1 MG TABLET PO ×2 (14:25→21:12)
--- NOTE | 2022-01-15 14:36 | PM.PN.1 ---
Subjective Subjective Date Patient Seen: 01/15/22 Interval history: 56-year-old gentleman with longstanding history of alcohol dependence complicated by withdrawal with seizures, previous intubation, previous DTs, who was admitted earlier this morning with alcohol withdrawal. He has been drinking for over 30 years. He drinks at least a 5th if not a 0.5 gal of vodka daily. On admission, he was complaining of agitation, nausea, sweatiness, headache, and intermittent vomiting. He did sustain a fall which resulted in a left 1st metacarpal fracture. He did receive phenobarbital in the emergency department for his withdrawal symptoms. He was subsequently admitted to the intensive care unit for further treatment. At the time of my evaluation, he had just finished eating breakfast. He denied any nausea. He did complain of some tremulousness. He states he was not feeling well and was having generalized pain.CIWA scores have been ranging on average between 15 and 22, though he did have a periodDuring the late morning/early afternoon of scores ranging from 0-6. Exam Vital Signs (past 8 hours): - 01/15/22 07:51 01/15/22 07:00 01/15/22 07:30 Temperature 98.2 F Pulse Rate 97 H 89 95 H Respiratory Rate 16 14 23 Blood Pressure 126/77 Pulse Oximetry 97 Oxygen Flow Rate 0 01/15/22 07:46 01/15/22 07:46 01/15/22 08:00 Temperature Pulse Rate 93 H 100 H Respiratory Rate 17 Blood Pressure 126/77 Pulse Oximetry 97 Oxygen Flow Rate 01/15/22 08:30 01/15/22 09:00 01/15/22 09:30 Temperature Pulse Rate 90 90 87 Respiratory Rate Blood Pressure Pulse Oximetry Oxygen Flow Rate 01/15/22 10:00 01/15/22 10:30 01/15/22 11:00 Temperature Pulse Rate 83 82 87 Respiratory Rate 19 Blood Pressure Pulse Oximetry Oxygen Flow Rate 01/15/22 11:30 01/15/22 12:00 01/15/22 12:30 Temperature Pulse Rate 85 87 89 Respiratory Rate 15 17 15 Blood Pressure Pulse Oximetry Oxygen Flow Rate 01/15/22 13:00 01/15/22 13:00 Temperature 98.0 F Pulse Rate 87 86 Respiratory Rate 17 18 Blood Pressure 112/77 Pulse Oximetry 93 Oxygen Flow Rate 0 Oxygen Delivery Method Room Air Oxygen Flow Rate 0 Narrative Exam Narrative: GEN: Disheveled middle-aged male, drowsy but responding appropriately, mildly tremulous, NAD HEENT:NC, Face symmetric CHEST: Respiratory excursions symmetric, CTAB CV: RRR, no M/R/G ABD: Soft, NT/ND, BT present in all 4 quadrants, no organomegaly or masses EXTR: warm, well perfused, no C/C/E SKIN: warm and dry, no rash NEURO: Nonfocal, drowsy as noted Objective Labs Result Diagrams: 01/15/22 07:45 01/15/22 07:45 Labs: Laboratory Results - last 24 hr 01/14/22 01/14/22 01/14/22 22:25 22:25 23:15 WBC 6.8 RBC 3.87 L Hgb 11.6 L Hct 34.5 L MCV 89.2 MCH 30.1 MCHC 33.7 RDW 15.6 H Plt Count 387 Neut % (Auto) 65.2 Lymph % (Auto) 19.7 L [place] % (Auto) 8.3 Eos % (Auto) 5.8 H Baso % (Auto) 1.0 Neut # (Auto) 4400 Lymph # (Auto) 1300 [place] # (Auto) 600 Eos # (Auto) 400 Baso # (Auto) 100 PT 12.7 INR 1.1 Sodium 139 Potassium 3.8 Chloride 104 Carbon Dioxide 26 BUN 3 L Creatinine 0.47 L Estimated GFR > 60 BUN/Creatinine Ratio 6.4 Glucose 96 Calcium 7.7 L Magnesium Total Bilirubin 0.3 AST 36 ALT 19 Alkaline Phosphatase 90 Total Creatine Kinase 77 CK-MB (CK-2) TNP CK-MB (CK-2) Rel Index TNP Troponin I < 0.012 NT-Pro-B Natriuret Pep 612 H Total Protein 6.2 L Albumin 3.6 Globulin 2.6 Albumin/Globulin Ratio 1.4 Lipase 83 Nasal Screen MRSA (PCR) U Opiates 300ng/mL cut Ur Oxycodone Screen Urine Methadone Screen Ur Barbiturates Screen U Tricyclic Antidepress Ur Phencyclidine Scrn Ur Amphetamines Screen U Methamphetamines Scrn Ur MDMA Scrn (Ecstasy) U Benzodiazepines Scrn Urine Cocaine Screen U Marijuana (THC) Screen SARS-CoV-2 (PCR) 01/15/22 01/15/22 01/15/22 00:45 01:35 02:15 WBC RBC Hgb Hct MCV MCH MCHC RDW Plt Count Neut % (Auto) Lymph % (Auto) [place] % (Auto) Eos % (Auto) Baso % (Auto) Neut # (Auto) Lymph # (Auto) [place] # (Auto) Eos # (Auto) Baso # (Auto) PT INR Sodium Potassium Chloride Carbon Dioxide BUN Creatinine Estimated GFR BUN/Creatinine Ratio Glucose Calcium Magnesium Total Bilirubin AST ALT Alkaline Phosphatase Total Creatine Kinase CK-MB (CK-2) CK-MB (CK-2) Rel Index Troponin I NT-Pro-B Natriuret Pep Total Protein Albumin Globulin Albumin/Globulin Ratio Lipase Nasal Screen MRSA (PCR) Negative for mrsa U Opiates 300ng/mL cut Negative Ur Oxycodone Screen Negative Urine Methadone Screen Negative Ur Barbiturates Screen Positive H U Tricyclic Antidepress Negative Ur Phencyclidine Scrn Negative Ur Amphetamines Screen Negative U Methamphetamines Scrn Negative Ur MDMA Scrn (Ecstasy) Negative U Benzodiazepines Scrn Positive H Urine Cocaine Screen Negative U Marijuana (THC) Screen Negative SARS-CoV-2 (PCR) Negative 01/15/22 01/15/22 07:45 07:45 WBC 5.8 RBC 3.73 L Hgb 11.4 L Hct 33.4 L MCV 89.6 MCH 30.5 MCHC 34.0 RDW 15.5 H Plt Count 367 Neut % (Auto) 46.5 L Lymph % (Auto) 33.4 [place] % (Auto) 9.5 Eos % (Auto) 7.2 H Baso % (Auto) 3.4 H Neut # (Auto) 2700 Lymph # (Auto) 1900 [place] # (Auto) 600 Eos # (Auto) 400 Baso # (Auto) 200 H PT INR Sodium 136 L Potassium 4.2 Chloride 104 Carbon Dioxide 31 BUN 3 L Creatinine 0.54 L Estimated GFR > 60 BUN/Creatinine Ratio 5.6 L Glucose 93 Calcium 7.9 L Magnesium 1.7 Total Bilirubin AST ALT Alkaline Phosphatase Total Creatine Kinase CK-MB (CK-2) CK-MB (CK-2) Rel Index Troponin I NT-Pro-B Natriuret Pep Total Protein Albumin Globulin Albumin/Globulin Ratio Lipase Nasal Screen MRSA (PCR) U Opiates 300ng/mL cut Ur Oxycodone Screen Urine Methadone Screen Ur Barbiturates Screen U Tricyclic Antidepress Ur Phencyclidine Scrn Ur Amphetamines Screen U Methamphetamines Scrn Ur MDMA Scrn (Ecstasy) U Benzodiazepines Scrn Urine Cocaine Screen U Marijuana (THC) Screen SARS-CoV-2 (PCR) [facility] Social History alcohol intake: current Assessment & Plan Assessment & Plan narrative: 1. Alcohol dependence with withdrawal Will place patient on a Librium taper, 50 mg q.6 times 24 hours, then 50 mg t.i.d. times 24 hours, then 50 mg b.i.d. times 24 hours, then 50 mg once daily. He will also be placed on oral lorazepam as needed per [facility] protocol. Will continue phenobarbital as needed in addition to the benzodiazepines. He does not have any documented history of liver disease in his LFTs are within normal limits. Could consider transitioning from Librium to Valium if his symptoms are not well controlled. Given his degree of sedation currently though I would be somewhat reluctant to do that. Continue multivitamin and thiamine. Patient's last drink was reportedly 6:00 a.m. yesterday morning. As noted, he has previous history of severe withdrawal, including seizures and need for intubation and mechanical ventilation 2. Left Thumb fracture Appreciate consult per Orthopedic surgery. Recommendations are for non operative treatment and thumb spica splint with follow-up in the clinic in 1-2 weeks for a thumb spica cast. Recommendations for 6 weeks of thumb spica immobilization. 3. Atrial fibrillation with RVR Patient has a known history of AFib and nonadherence to medications. Continue metoprolol. Presently his rate controlled. Magnesium is within normal limits at 1.7. Potassium levels also within normal limits. 4. Nicotine dependence Nicotine patch has been ordered. Code status Full Prophylaxis Low Matt score Disposition ICU Time Spent With Patient Critical Care time: I spent a total of [] minutes of critical care time on this patient's care today; this time is exclusive of procedural time.
--- NOTE | 2022-01-15 15:13 | CM.DANOTE ---
Initial Discharge Planning Note: Case received. EMR reviewed. Met with patient, introduced self and role. Payer: Medicare and self pay PCP Zeferino Orlando 56 year old homeless male admitted 01/15/22 early am. He has extensive alcohol history, atrial fibrillation on anticoagulation presented to ER with agitation and palpitations. According to ER notes he normally drinks upwards of a 0.5 gallon of liquor per day and last drink in am. Heavy drinking for past 35 years. He tells me he was sober for 8 years. Had fall and fractured thumb, with abrasions to face. A fib with RVR. Tobacco abuse. Met with patient in his room. On IV phenobarbitol drip. Spoke with patient, he was able only to provide some of his history and left parts out due to his impaired status. He states he has no family. He states he was living in a rented cabin in [facility] until 5 months ago and has been homeless since. 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 He states the [facility] has set up a room for him at [facility] in [place] but unable to state how or why. Unable to gather any more information from him due to started getting agitated. Plan: Follow daily for updates and when more mentally clear, determine details of stated plan for the [facility] stay next week(?). Provide resources when clear. FRANCINE Discharge Planning/Care Management CM Discharge Assessment Start: 01/15/22 15:02 Freq: Status: Active Protocol: Document 01/15/22 15:03 (Rec: 01/15/22 15:11 [id number]) Discharge Planning Assessment Assigned Filter Changer La Moran RN, DCP Advance Directives? No History Provided By Patient Prior Living Arrangements Homeless Comment patient lost his rented cabin in [place] [facility] 4 months ago he states Type of transporation used prior to Drives own vehicle admit Comment Check to see if indeed has own vehicle. Independent with ADL's No: cannot assess in altered state Is patient alert and oriented? No: cannot assess in altered states, although answers questions appropriately. Comment Pt not good historian at this time until his head clears. Caregiver for Another No Comment unknown, pt is homeless Comment Patient states he has a set up with [facility] insurance for staying at [facility] next week (?) he cannot provide any more details. Patient states he has no family. Barriers to Discharge Yes Comment No family or stated support system. He has been homeless for 4 months. Transportation Arrangement Unknown, taxi? Additional Comment Unknown needs. Review Status In Process Next Review Type Continued Stay Review
[2022-01-16] VITALS (50 sets, daily range): BP systolic 91–148; BP diastolic 58–109; PULSE 75–98; RESP 6–38; TEMP 36.2–36.8; O2SAT 91–100
[2022-01-16] MEDS: LORazepam 1 MG TABLET PO ×5 (03:15→21:45)
[2022-01-16] MEDS: diphenhydrAMINE 25 MG TABLET PO ×3 (03:15→21:45)
--- NOTE | 2022-01-16 04:34 | PC.NURSE ---
Shift Note: At 2030, patient appears very confused, agitated and slightly combative, cussing and stated 'fuck off' and 'don't touch me asshole'. CIWA was done and it was 15, re-oriented was done and patient slightly calm down but still agitated, due meds for agitation and withdrawal given. Vital signs are stable and within the acceptable limits. Hospitalist notified. Will continue to monitor.
[2022-01-16] MEDS: HYDROCODONE/ACET 5/325 TABLET 1 TAB PO ×3 (05:02→21:45)
[2022-01-16] MEDS: chlordiazePOXIDE 25 MG CAPSULE 50 MG PO ×3 (05:02→18:21)
[2022-01-16] MEDS: ACETAMINOPHEN 325 MG TABLET 650 MG PO (06:05)
--- NOTE | 2022-01-16 07:29 | P.PN_ITS ---
Subjective Subjective Date Patient Seen: 01/16/22 Interval history: 56-year-old gentleman with longstanding history of alcohol dependence complicated by withdrawal with seizures, previous intubation, previous DTs, who was admitted earlier this morning with alcohol withdrawal.? He has been drinking for over 30 years.? He drinks at least a 5th if not a 0.5 gal of vodka daily.? On admission, he was complaining of agitation, nausea, sweatiness, headache, and intermittent vomiting.? He did sustain a fall which resulted in a left 1st metacarpal fracture.? He did receive phenobarbital in the emergency department for his withdrawal symptoms.? He was subsequently admitted to the intensive care unit for further treatment. At the time of my evaluation, he was again eating breakfast. Denies any nausea. States that he is feeling better today than yesterday. CIWA scores have ranged from 5-15. He received only 6 mg of lorazepam and past 24 hours for a total of 3 doses. He has had somewhat of a waxing and waning course with episodes of escalation and agitation as well as disorientation interspersed with episodes of being alert, oriented, and calm. He reports that his thumb remains painful but is no worse compared to yesterday. Exam Vital Signs (past 8 hours): - 01/15/22 23:30 01/16/22 03:32 01/16/22 00:00 Temperature 98 F Pulse Rate 85 86 91 H Respiratory Rate 26 H 13 14 Blood Pressure 138/95 H Pulse Oximetry 98 Oxygen Flow Rate 0 01/16/22 00:30 01/16/22 01:00 01/16/22 01:30 Temperature Pulse Rate 89 89 88 Respiratory Rate 14 14 14 Blood Pressure Pulse Oximetry Oxygen Flow Rate 01/16/22 02:00 01/16/22 02:30 01/16/22 03:00 Temperature Pulse Rate 94 H 98 H 90 Respiratory Rate 15 29 H Blood Pressure Pulse Oximetry Oxygen Flow Rate 01/16/22 03:27 01/16/22 03:27 01/16/22 03:29 Temperature Pulse Rate 86 Respiratory Rate 13 Blood Pressure 148/109 H 138/95 H Pulse Oximetry 98 Oxygen Flow Rate 01/16/22 03:29 01/16/22 04:00 Temperature Pulse Rate 87 88 Respiratory Rate 14 18 Blood Pressure Pulse Oximetry Oxygen Flow Rate Oxygen Delivery Method Room Air Oxygen Flow Rate 0 Narrative Exam Narrative: GEN:? Disheveled middle-aged male, alert, sitting up and eating breakfast, NAD HEENT:NC, Face symmetric CHEST: Respiratory excursions symmetric, CTAB CV: RRR, no M/R/G ABD: Soft, NT/ND, BT present in all 4 quadrants, no organomegaly or masses EXTR: warm, well perfused, no C/C/E, left forearm/hand in a splint SKIN: warm and dry, no rash NEURO:? Nonfocal, drowsy as noted Objective Labs Result Diagrams: 01/15/22 07:45 01/15/22 07:45 Labs: Laboratory Results - last 24 hr 01/15/22 01/15/22 07:45 07:45 WBC 5.8 RBC 3.73 L Hgb 11.4 L Hct 33.4 L MCV 89.6 MCH 30.5 MCHC 34.0 RDW 15.5 H Plt Count 367 Neut % (Auto) 46.5 L Lymph % (Auto) 33.4 [place] % (Auto) 9.5 Eos % (Auto) 7.2 H Baso % (Auto) 3.4 H Neut # (Auto) 2700 Lymph # (Auto) 1900 [place] # (Auto) 600 Eos # (Auto) 400 Baso # (Auto) 200 H Sodium 136 L Potassium 4.2 Chloride 104 Carbon Dioxide 31 BUN 3 L Creatinine 0.54 L Estimated GFR > 60 BUN/Creatinine Ratio 5.6 L Glucose 93 Calcium 7.9 L Magnesium 1.7 PFSH Social History alcohol intake: current Assessment & Plan Assessment & Plan narrative: 1. Alcohol dependence with withdrawal Patient continues on a Librium taper, having completed 50 mg q.6 times 24 hours. He is now on 50 mg t.i.d. for 3 doses, tomorrow will be b.i.d., the following day once daily. He is also receiving lorazepam per [facility] protocol. He has not required additional phenobarbital. He does not have any documented history of liver disease in his LFTs are within normal limits.? Continue multivitamin and thiamine. His last drink was 6:00 a.m. on January 14. He has prior history of severe withdrawal with seizures and prior intubation. Overall, he appears to be improving today. 2. Left Thumb fracture Appreciate consult per Orthopedic surgery.? Recommendations are for non operative treatment and thumb spica splint with follow-up in the clinic in 1-2 weeks for a thumb spica cast.? Recommendations for 6 weeks of thumb spica immobilization. 3. Atrial fibrillation with RVR Patient has a known history of AFib and nonadherence to medications.? Continue metoprolol.? Sinus by exam. Electrolytes have been within normal limits. 4. Nicotine dependence Nicotine patch has been ordered. Code status Full Prophylaxis Low Matt score Disposition ICU Time Spent With Patient Critical Care time: I spent a total of [] minutes of critical care time on this patient's care today; this time is exclusive of procedural time.
[2022-01-16] MEDS: FOLIC ACID 1 MG TABLET PO (08:02)
[2022-01-16] MEDS: METOPROLOL IR 25 MG TABLET 75 MG PO ×2 (08:03→21:27)
[2022-01-16] MEDS: HEPARIN 5,000 UNIT/ML VIAL 5000 UNIT SUBCUT ×2 (08:03→21:26)
[2022-01-16] MEDS: MULTIVITAMIN 1 TABLET 1 TAB PO (08:03)
[2022-01-16] MEDS: THIAMINE 100 MG TABLET 500 MG PO ×2 (08:53→21:26)
[2022-01-16] MEDS: diazePAM 10 MG/2 ML SYRINGE IM ×2 (14:15→15:40)
--- NOTE | 2022-01-16 14:25 | PM.CN.EICU ---
History of Present Illness Consult details Date Patient Seen: 01/16/22 Chief complaint: heart palpitations Reason for consult: Alcohol withdrawal Requesting provider: Juliana Ulloa Consent obtained for tele-lot worker care: No Patient Location: ICU Provider location (State): [place] Other participants/roles: RN Narrative: Patient is a 56 year old male with history of alcoholism and seizure who was admitted for alcohol with withdrawal two days ago. During hospitalization patient sustained a left 1st metacarpal fracture. He was started on librium and phenobarbital therapy. Earlier this afternoon patient developed severe agitation requiring 4 points restraints. Transferred to ICU for precedex infusion. In ICU patient pulled out all PIVs and received 10 mg of valium. Awaiting for RN to place PIVs to start precedex infusion. [facility] Social History alcohol intake: current Current Medications Current Medications Medications: Home Medications clonazepam 1 mg tablet 1 mg PO BID ##21 01/23/12 [Rx Confirmed 01/15/22] atenolol 100 mg tablet (Tenormin) 100 mg PO Q DAY ##10 06/06/12 [Rx Confirmed 01/15/22] Visit Medications (administered) Generic Name Dose Route Start Last Admin Trade Name Freq PRN Reason Stop Dose Admin Acetaminophen 650 mg 01/15/22 02:25 01/16/22 06:05 Acetaminophen 325 Mg Tablet PO 650 mg Q6HR PRN Administration Fever/Mild Pain (1-3) Hydrocodone Bitart/Acetaminophen 1 tab 01/15/22 03:04 01/16/22 10:38 Hydrocodone/Acet 5/325 Tablet PO 1 tab Q6HR PRN Administration Pain, Moderate (4-6) Chlordiazepoxide HCl 50 mg 01/15/22 12:00 01/16/22 12:12 Chlordiazepoxide 25 Mg Capsule PO 50 mg Q6HR EVERETTE Administration Diphenhydramine HCl 25 mg 01/15/22 03:04 01/16/22 10:38 Diphenhydramine 25 Mg Tablet PO 25 mg Q6HR PRN Administration Itching Folic Acid 1 mg 01/15/22 09:00 01/16/22 08:02 Folic Acid 1 Mg Tablet PO 1 mg DAILY EVERETTE Administration Heparin Sodium (Porcine) 5,000 unit 01/15/22 09:00 01/16/22 08:03 Heparin 5,000 Unit/Ml Vial SUBCUT 5,000 unit BID EVERETTE Administration Sodium Chloride 1,000 mls @ 100 mls/hr 01/15/22 09:00 01/16/22 11:28 Normal Saline 0.9% IV 02/14/22 18:59 Infused CONT EVERETTE Infusion Lorazepam 0 mg 01/15/22 08:47 01/16/22 13:26 Lorazepam 1 Mg Tablet PO 2 mg CIWAPRN PRN Administration Alcohol Withdrawal Protocol Metoprolol Tartrate 75 mg 01/15/22 09:00 01/16/22 08:03 Metoprolol Ir 25 Mg Tablet PO 75 mg BID EVERETTE Administration Multivitamins 1 tab 01/15/22 09:00 01/16/22 08:03 Multivitamin 1 Tablet PO 1 tab DAILY EVERETTE Administration Nicotine 7 mg 01/15/22 09:00 01/16/22 08:59 Nicotine 7 Mg Patch TOP Not Given DAILY EVERETTE Phenobarbital 130 mg 01/15/22 04:28 01/15/22 23:34 Phenobarbital 65 Mg/Ml Vial IV 130 mg Q30MIN PRN Administration Alcohol Withdrawal Protocol Thiamine HCl 500 mg 01/16/22 09:00 01/16/22 08:53 Thiamine 100 Mg Tablet PO 01/18/22 09:01 500 mg TID EVERETTE Administration Review of Systems Review of Systems Narrative: Unable to assess due to acuity condition Exam Vital Signs (past 8 hours): - 01/16/22 08:00 01/16/22 08:55 01/16/22 11:27 Temperature 97.2 F L Pulse Rate 83 87 82 Respiratory Rate 12 18 12 Blood Pressure 134/87 Pulse Oximetry 96 Oxygen Flow Rate 0 01/16/22 11:37 Temperature 98.2 F Pulse Rate 79 Respiratory Rate 12 Blood Pressure 122/79 Pulse Oximetry 97 Oxygen Flow Rate 0 Oxygen Delivery Method Room Air Oxygen Flow Rate 0 Narrative Exam Narrative: Calm and sleeping after receiving 10 mg of valium Objective Labs Result Diagrams: 01/15/22 07:45 01/15/22 07:45 Assessment & Plan Assessment & Plan narrative: NEURO: # Alcohol withdrawal -- Severe alcohol withdrawal with impending DTs -- Start precedex infusion -- Cont librium and ativan as needed -- On MTV, thiamine, and folic acid RESP: -- Encourage IS and OOB as tolerated -- Monitor closely for respiratory depression CVS: # HTN -- On metoprolol -- Goal SBP < 140 HEME: # Anemia -- Secondary to BM suppression from alcoholism -- Daily CBC -- Goal Hb > 7 ENDO: -- Goal BS < 180 D/w Dr. Ulloa and RN at bedside. Time Spent With Patient Critical Care time: I spent a total of 34 minutes of critical care time on this patient's care today; this time is exclusive of procedural time.
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
--- NOTE | 2022-01-16 16:33 | PC.NURSE ---
Patient continues to yell out, cursing at staff and calling them foul names. Patient paranoid that staff was outside his room talking about him going to care home. Patient assured staff was not out there talking about him, that they were busy taking care of other patients.
--- NOTE | 2022-01-16 17:58 | DI.RAD.S_ITS ---
PROCEDURE: XR CHEST 1V INDICATIONS: PICC line placement TECHNIQUE: One view of the chest was acquired. COMPARISON: [facility], CR, XR CHEST 1V, 01/14/2022, 20:50. [facility], CR, XR CHEST 1V, 01/15/2022, 4:33. FINDINGS: Surgical changes and devices: Previously seen right-sided central venous catheter has been removed. There is a left upper extremity PICC in place with the distal tip projecting over the lower cavoatrial junction. Lungs and pleura: Lungs are clear. No pleural effusions or pneumothorax. Mediastinum: Mediastinal contours appear normal. Heart size is normal. Bones and chest wall: No suspicious bony lesions. Overlying soft tissues appear unremarkable. Status post left clavicular ORIF. IMPRESSION: Interval placement of left upper extremity PICC with the distal tip of the catheter projecting over the lower cavoatrial junction. Dictated by: Johnathon Morales M.D. on 01/16/2022 at 18:24 Approved by: Johnathon Morales M.D. on 01/16/2022 at 18:26
[2022-01-16] MEDS: dexmedeTOMIDine in 0.9 % NaCL 400 MCG/100 ML PLAST..BAG 5.557 MCG IV (18:20)
--- NOTE | 2022-01-16 19:50 | PM.ICURNDS ---
- :: This patient was seen via real time interactive two-way audiovisual telecommunication. Note: Transferred to ICU for alcohol withdrawal. Started on precedex infusion. Cont librium therapy and ativan as needed. D/w RN at bedside.
[2022-01-17] VITALS (68 sets, daily range): BP systolic 123–203; BP diastolic 68–130; PULSE 63–88; RESP 7–30; TEMP 35.8–36.2; O2SAT 93–98
[2022-01-17] MEDS: chlordiazePOXIDE 25 MG CAPSULE 50 MG PO ×3 (00:53→11:51)
[2022-01-17] MEDS: dexmedeTOMIDine in 0.9 % NaCL 400 MCG/100 ML PLAST..BAG 5.557 MCG IV (03:50)
[2022-01-17] MEDS: diphenhydrAMINE 25 MG TABLET PO ×2 (04:25→11:48)
[2022-01-17] MEDS: HYDROCODONE/ACET 5/325 TABLET 1 TAB PO ×2 (04:25→11:48)
[2022-01-17] MEDS: ACETAMINOPHEN 325 MG TABLET 650 MG PO (06:20)
--- NOTE | 2022-01-17 07:14 | P.PN_ITS ---
Subjective Subjective Date Patient Seen: 01/17/22 Time Patient Seen: 07:16 Interval history: Patient is very sedated this morning. He wakes up and asks for alcohol times 3- 5 during my short visit with him. Denies any pain in his left hand. He is generally uncooperative and sedated. Exam Vital Signs (past 8 hours): - 01/16/22 23:30 01/17/22 00:00 01/17/22 00:00 Temperature Pulse Rate 81 78 Respiratory Rate 14 16 Blood Pressure 134/82 Pulse Oximetry 93 93 Oxygen Delivery Method Oxygen Flow Rate 01/17/22 02:00 01/17/22 00:30 01/17/22 01:00 Temperature Pulse Rate 75 80 Respiratory Rate 11 L 15 Blood Pressure 125/68 Pulse Oximetry 95 93 Oxygen Delivery Method Oxygen Flow Rate 0 01/17/22 01:00 01/17/22 01:30 01/17/22 02:00 Temperature Pulse Rate 88 84 Respiratory Rate 13 13 Blood Pressure 126/89 Pulse Oximetry 93 93 Oxygen Delivery Method Oxygen Flow Rate 01/17/22 02:00 01/17/22 02:30 01/17/22 03:00 Temperature Pulse Rate 85 77 Respiratory Rate 12 14 Blood Pressure Pulse Oximetry 94 93 Oxygen Delivery Method Room Air Oxygen Flow Rate 01/17/22 04:30 01/17/22 03:00 01/17/22 03:00 Temperature 96.5 F L Pulse Rate 80 Respiratory Rate 14 Blood Pressure 148/101 H Pulse Oximetry 93 Oxygen Delivery Method Oxygen Flow Rate 01/17/22 03:03 01/17/22 03:03 01/17/22 03:30 Temperature Pulse Rate 81 Respiratory Rate 13 Blood Pressure 148/103 H 149/88 H Pulse Oximetry 94 Oxygen Delivery Method Oxygen Flow Rate 01/17/22 03:30 01/17/22 04:00 01/17/22 04:00 Temperature Pulse Rate 79 82 Respiratory Rate 13 14 Blood Pressure 141/104 H Pulse Oximetry 94 94 Oxygen Delivery Method Oxygen Flow Rate 01/17/22 04:30 01/17/22 05:00 01/17/22 05:00 Temperature Pulse Rate 77 78 Respiratory Rate 19 11 L Blood Pressure 147/96 H Pulse Oximetry 98 98 Oxygen Delivery Method Oxygen Flow Rate 01/17/22 05:30 01/17/22 06:00 01/17/22 06:01 Temperature Pulse Rate 79 72 82 Respiratory Rate 12 12 12 Blood Pressure Pulse Oximetry 95 95 95 Oxygen Delivery Method Oxygen Flow Rate 01/17/22 06:01 01/17/22 07:00 01/17/22 06:30 Temperature Pulse Rate 79 75 Respiratory Rate 10 L Blood Pressure 129/96 H Pulse Oximetry 98 Oxygen Delivery Method Oxygen Flow Rate 01/17/22 07:00 01/17/22 07:09 01/17/22 07:09 Temperature Pulse Rate 73 76 Respiratory Rate 12 13 Blood Pressure 167/110 H Pulse Oximetry 96 97 Oxygen Delivery Method Oxygen Flow Rate Oxygen Delivery Method Room Air Oxygen Flow Rate 0 Narrative Exam Narrative: Sedated 56-year-old male, resting comfortably in bed, no acute distress. Left thumb spica splint is in place. He is able to wiggle his thumbs. There are healing abrasions throughout. He is generally uncooperative with the exam. Objective Labs Result Diagrams: 01/15/22 07:45 01/15/22 07:45 [facility] Social History alcohol intake: current Assessment & Plan Assessment & Plan narrative: Assessment and plan (1) Fracture of thumb, left, closed: Extra-articular left basal thumb 1st metacarpal fracture.? Extra-articular.? Non operative treatment and thumb spica splint.? Can be seen in Orthopedic Clinic in 1-2 weeks for transition to thumb spica cast.? Recommend 6 weeks thumb spica immobilization (2) Alcohol withdrawal: Management per medical team Time Spent With Patient Critical Care time: I spent a total of [] minutes of critical care time on this patient's care toda y; this time is exclusive of procedural time.
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
[2022-01-17] MEDS: METOPROLOL IR 25 MG TABLET 75 MG PO (08:05)
[2022-01-17] MEDS: THIAMINE 100 MG TABLET 500 MG PO (08:05)
[2022-01-17] MEDS: MULTIVITAMIN 1 TABLET 1 TAB PO (08:05)
[2022-01-17] MEDS: HEPARIN 5,000 UNIT/ML VIAL 5000 UNIT SUBCUT ×2 (08:05→20:56)
[2022-01-17] MEDS: FOLIC ACID 1 MG TABLET PO (08:05)
[2022-01-17] MEDS: LORazepam 1 MG TABLET PO (08:20)
--- NOTE | 2022-01-17 09:42 | DI.RAD.S_ITS ---
PROCEDURE: XR CHEST FOR PICC 1V INDICATIONS: picc line too deep? COMPARISON: [facility], CR, XR CHEST 1V, 01/16/2022, 17:57. FINDINGS: PICC was placed by the intravenous therapy team from the left side. Fluoroscopic spot film demonstrates the tip of PICC projecting to the area of proximal SVC. Left clavicular ORIF. IMPRESSION: Tip of PICC projects to the area of proximal SVC. Dictated by: Kiley Rodriguez M.D. on 01/17/2022 at 12:28 Approved by: Kiley Rodriguez M.D. on 01/17/2022 at 12:29
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
--- NOTE | 2022-01-17 11:31 | PC.NURSE ---
Patient again got confused and tried to get out of bed, still in restraints, cursing at staff, threatening violence, MD notified and came to speak to patient, Precedex increased per MD, Patient eventually restfull and will be given time to reorient. Important note is that if Patient sees people looking at him he becomes more violent.
[2022-01-17] MEDS: dexmedeTOMIDine in 0.9 % NaCL 400 MCG/100 ML PLAST..BAG 41.674 MCG IV ×5 (11:48→23:21)
[2022-01-17] MEDS: dexmedeTOMIDine in 0.9 % NaCL 400 MCG/100 ML PLAST..BAG 33.339 MCG IV (14:31)
--- NOTE | 2022-01-17 15:22 | CM.DPC ---
DCP Cont: Per MD, pt continues to need medical treatment for withdrawals and pt's hx of seizures/intubation for alcohol withdrawal although pt has moments of lucidity and states he has treatment lined up for Inpt ETOH tx at [facility] for tomorrow. Per RN, pt continues to have moments of agitation, yelling, swearing and has required some restraints and sedation for pt and staff protection. Pt not currently medically appropriate or safe to have discharge planning discussion. Margarito rivera called on pt again today. SW called [facility] Inpt Detox and they looked into their Twelve System and only show pt's Inpt Detox from Jun 2021 this year as cancelled and no other Inpt Tx set up in their system and only have multiple ED visits at [facility] from the patient. SW also called [facility] to see if this could be an option for pt once medically detoxed at [facility] for lower level of care towards getting into ETOH tx if pt is agreeable when stable and [facility] can no longer accept pt's with a hx of withdrawal seizures. Plan: SW to follow closely for pt to be more medically appropriate from ETOH withdrawals towards discussion on discharge planning needs and possible ETOH resources for outpt tx towards getting into Inpt ETOH tx. Carli Mazariegos, MANAGER INSTRUMENTATION
--- NOTE | 2022-01-17 20:20 | PM.ICURNDS ---
- :: This patient was seen via real time interactive two-way audiovisual telecommunication. patient remains on precedex gtt for etoh withdrawal. repeat chest rray aprprecauted, PICC seems in better positon, may need cath flow if it contiues to have poor flow. Left hand Xr aprecaited, new 5th metatarsal fx. will f/u Ortho
[2022-01-17] MEDS: LABETALOL 20 MG/4 ML SYRINGE IV (20:57)
[2022-01-17] MEDS: METOPROLOL TARTRATE 5 MG/5 ML INJ IV ×2 (22:21→22:48)
[2022-01-18] VITALS (75 sets, daily range): BP systolic 111–193; BP diastolic 64–129; PULSE 71–92; RESP 9–44; TEMP 35.6–36.6; O2SAT 94–99
--- NOTE | 2022-01-18 00:03 | PC.NURSE ---
On initial assessment, patient's BP elevated (170's/110's). Patient unable to take PO metoprolol due to being sedated on precedex and being too lethargic. Dumper Bailer Operator called manager visual for PRN order. Labetolol given with no change in BP. Dumper Bailer Operator spoke with hospitalist and was able to give metoprolol IV push x2 with still no change in BP. Rubber Block Layer called, nicardipene ggt ordered.
[2022-01-18] MEDS: NICARDIPINE 25 MG in SODIUM CHLORIDE 0.9% 240 ML 50 MG IV (00:25)
[2022-01-18] MEDS: dexmedeTOMIDine in 0.9 % NaCL 400 MCG/100 ML PLAST..BAG 41.674 MCG IV ×5 (01:33→09:49)
[2022-01-18] MEDS: HEPARIN 5,000 UNIT/ML VIAL 5000 UNIT SUBCUT (08:08)
--- NOTE | 2022-01-18 08:13 | PM.PN.1 ---
Subjective Subjective Date Patient Seen: 01/18/22 Time Patient Seen: 08:13 Interval history: Patient is sedated this morning but is complaining of right hand pain when asked. He has also occurs thing of Saturdays at id. He is generally uncooperative. He is currently restrained. Exam Vital Signs (past 8 hours): - 01/18/22 00:16 01/18/22 00:16 01/18/22 01:00 Temperature 96.0 F L Pulse Rate 86 Respiratory Rate 18 Blood Pressure 193/129 H Pulse Oximetry 99 Oxygen Delivery Method 01/18/22 00:30 01/18/22 00:30 01/18/22 00:45 Temperature Pulse Rate 84 Respiratory Rate 13 Blood Pressure 159/126 H 123/99 H Pulse Oximetry 98 Oxygen Delivery Method 01/18/22 00:45 01/18/22 01:00 01/18/22 01:02 Temperature Pulse Rate 90 84 Respiratory Rate 13 14 Blood Pressure 114/83 Pulse Oximetry 95 95 Oxygen Delivery Method 01/18/22 01:02 01/18/22 01:23 01/18/22 01:23 Temperature Pulse Rate 85 91 H Respiratory Rate 14 12 Blood Pressure 137/95 H Pulse Oximetry 94 95 Oxygen Delivery Method 01/18/22 01:27 01/18/22 01:27 01/18/22 01:30 Temperature Pulse Rate 87 Respiratory Rate 12 Blood Pressure 151/95 H 140/100 H Pulse Oximetry 94 Oxygen Delivery Method 01/18/22 01:30 01/18/22 01:45 01/18/22 01:45 Temperature Pulse Rate 84 80 Respiratory Rate 11 L 11 L Blood Pressure 153/95 H Pulse Oximetry 95 94 Oxygen Delivery Method 01/18/22 02:00 01/18/22 02:00 01/18/22 02:15 Temperature Pulse Rate 84 Respiratory Rate 9 L Blood Pressure 157/98 H 169/104 H Pulse Oximetry 95 Oxygen Delivery Method 01/18/22 02:15 01/18/22 02:30 01/18/22 02:30 Temperature Pulse Rate 78 82 Respiratory Rate 11 L 12 Blood Pressure 171/102 H Pulse Oximetry 96 97 Oxygen Delivery Method 01/18/22 02:46 01/18/22 02:46 01/18/22 03:00 Temperature Pulse Rate 90 Respiratory Rate 13 Blood Pressure 167/115 H 157/123 H Pulse Oximetry 98 Oxygen Delivery Method 01/18/22 03:00 01/18/22 03:15 01/18/22 03:15 Temperature Pulse Rate 81 80 Respiratory Rate 11 L 10 L Blood Pressure 165/129 H Pulse Oximetry 98 98 Oxygen Delivery Method 01/18/22 03:30 01/18/22 03:30 01/18/22 03:45 Temperature Pulse Rate 74 Respiratory Rate 12 Blood Pressure 163/126 H 164/111 H Pulse Oximetry 97 Oxygen Delivery Method 01/18/22 03:45 01/18/22 04:00 01/18/22 04:00 Temperature Pulse Rate 82 78 Respiratory Rate 12 13 Blood Pressure 172/116 H Pulse Oximetry 96 96 Oxygen Delivery Method 01/18/22 04:15 01/18/22 04:15 01/18/22 04:30 Temperature Pulse Rate 78 Respiratory Rate 13 Blood Pressure 170/106 H 171/96 H Pulse Oximetry 96 Oxygen Delivery Method 01/18/22 04:30 01/18/22 04:46 01/18/22 04:46 Temperature Pulse Rate 74 90 Respiratory Rate 13 28 H Blood Pressure 174/97 H Pulse Oximetry 95 94 Oxygen Delivery Method 01/18/22 05:00 01/18/22 05:00 01/18/22 05:15 Temperature Pulse Rate 80 Respiratory Rate 14 Blood Pressure 170/109 H 157/110 H Pulse Oximetry 98 Oxygen Delivery Method 01/18/22 05:15 01/18/22 05:30 01/18/22 05:30 Temperature Pulse Rate 84 77 Respiratory Rate 13 13 Blood Pressure 177/108 H Pulse Oximetry 98 98 Oxygen Delivery Method 01/18/22 05:45 01/18/22 05:45 01/18/22 04:00 Temperature Pulse Rate 83 Respiratory Rate 15 Blood Pressure 162/108 H Pulse Oximetry Oxygen Delivery Method Room Air 01/18/22 06:00 01/18/22 06:00 01/18/22 06:15 Temperature Pulse Rate 79 Respiratory Rate 13 Blood Pressure 180/125 H 178/109 H Pulse Oximetry Oxygen Delivery Method 01/18/22 06:15 01/18/22 07:00 01/18/22 07:00 Temperature Pulse Rate 80 72 Respiratory Rate 13 15 Blood Pressure 184/108 H Pulse Oximetry 98 Oxygen Delivery Method 01/18/22 08:00 01/18/22 08:00 Temperature Pulse Rate 86 Respiratory Rate 19 Blood Pressure 132/88 Pulse Oximetry 97 Oxygen Delivery Method Oxygen Delivery Method Room Air Oxygen Flow Rate 0 Narrative Exam Narrative: 56-year-old male, resting comfortably in bed, no acute distress. Left hand is in a thumb spica splint. Right hand appears to be nontender palpation, again the patient is uncooperative. Objective Labs Result Diagrams: 01/15/22 07:45 01/15/22 07:45 [facility] Medical History Alcohol abuse HTN (hypertension) Social History alcohol intake: current Assessment & Plan Assessment & Plan narrative: Assessment and plan (1) Fracture of thumb, left, closed: Extra-articular left basal thumb 1st metacarpal fracture.? Extra-articular.? Non operative treatment and thumb spica splint.? Can be seen in Orthopedic Clinic in 1-2 weeks for transition to thumb spica cast.? Recommend 6 weeks thumb spica immobilization (2) minimally displaced right distal 5th metacarpal fracture. Dr. Pineda has reviewed the films and has recommended radha taping the ring and small fingers together and then using Coban to stabilize this fingers to the hand and wrist, which was done today. (3) Alcohol withdrawal: Management per medical team Time Spent With Patient Critical Care time: I spent a total of [] minutes of critical care time on this patient's care today; this time is exclusive of procedural time.
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
--- NOTE | 2022-01-18 10:35 | P.TELICUPN_ITS ---
Subjective Subjective Consent obtained for tele-straight line press setter care: Yes Patient Location: ICU Provider location (State): [place] Other participants/roles: rn Interval history: patient remians on precedex gtt and on varying doses, he complains of pain due b/l hand fx. Riht hand now splinted by ortho. Current Medications Current Medications Medications: Home Medications clonazepam 1 mg tablet 1 mg PO BID ##21 01/23/12 [Rx Confirmed 01/15/22] atenolol 100 mg tablet (Tenormin) 100 mg PO Q DAY ##10 06/06/12 [Rx Confirmed 01/15/22] Visit Medications (administered) Generic Name Dose Route Start Last Admin Trade Name Freq PRN Reason Stop Dose Admin Acetaminophen 650 mg 01/15/22 02:25 01/17/22 06:20 Acetaminophen 325 Mg Tablet PO 650 mg Q6HR PRN Administration Fever/Mild Pain (1-3) Hydrocodone Bitart/Acetaminophen 1 tab 01/15/22 03:04 01/17/22 11:48 Hydrocodone/Acet 5/325 Tablet PO 1 tab Q6HR PRN Administration Pain, Moderate (4-6) Chlordiazepoxide HCl 50 mg 01/15/22 12:00 01/18/22 06:09 Chlordiazepoxide 25 Mg Capsule PO Not Given Q6HR [place]ETTE Diphenhydramine HCl 25 mg 01/15/22 03:04 01/17/22 11:48 Diphenhydramine 25 Mg Tablet PO 25 mg Q6HR PRN Administration Itching Folic Acid 1 mg 01/15/22 09:00 01/18/22 08:07 Folic Acid 1 Mg Tablet PO Not Given DAILY [facility]1983 Heparin Sodium (Porcine) 5,000 unit 01/15/22 09:00 01/18/22 08:08 Heparin 5,000 Unit/Ml Vial SUBCUT 5,000 unit BID EVERETTE Administration Heparin Sodium (Porcine) 50 unit 01/17/22 23:15 01/18/22 09:14 Heparin Flush (Cl/Picc/Mid-Line) 50 Unit/5 Ml Syringe IV Not Given BID [place]TE Sodium Chloride 1,000 mls @ 100 mls/hr 01/15/22 09:00 01/16/22 11:28 Normal Saline 0.9% IV 02/14/22 18:59 Infused CONT EVERETTE Infusion dexmedeTOMIDine in 0.9 % NaCL 400 mcg in 100 mls @ 5.557 mls/hr 01/16/22 14:15 01/18/22 10:20 Precedex IV 2 mcg/kg/hr TITRATE EVERETTE 55.565 mls/hr Titration Protocol 0.2 MCG/KG/HR Nicardipine HCl 25 mg/ Sodium 250 mls @ 50 mls/hr 01/17/22 23:45 01/18/22 08:45 Chloride IV 1.25 mg/hr TITRATE EVERETTE 12.5 mls/hr Titration Protocol 5 MG/HR Labetalol HCl 20 mg 01/17/22 20:53 01/17/22 20:57 Labetalol 20 Mg/4 Ml Syringe IV 20 mg Q4HR PRN Administration SBP > 160 Lorazepam 0 mg 01/15/22 08:47 01/17/22 08:20 Lorazepam 1 Mg Tablet PO 2 mg CIWAPRN PRN Administration Alcohol Withdrawal Protocol Metoprolol Tartrate 75 mg 01/15/22 09:00 01/18/22 08:07 Metoprolol Ir 25 Mg Tablet PO Not Given BID [place]ERETTE Metoprolol Tartrate 5 mg 01/17/22 22:07 01/17/22 22:48 Metoprolol Tartrate 5 Mg/5 Ml Inj IV 01/19/22 22:16 5 mg Q15MIN PRN Administration Hypertension Multivitamins 1 tab 01/15/22 09:00 01/18/22 08:07 Multivitamin 1 Tablet PO Not Given DAILY [place]TE Nicotine 7 mg 01/15/22 09:00 01/18/22 08:08 Nicotine 7 Mg Patch TOP Not Given DAILY [facility] Objective Labs Result Diagrams: 01/15/22 07:45 01/15/22 07:45 Exam Vital Signs (past 8 hours): - 01/18/22 02:46 01/18/22 02:46 01/18/22 03:00 Pulse Rate 90 Respiratory Rate 13 Blood Pressure 167/115 H 157/123 H Pulse Oximetry 98 Oxygen Delivery Method Oxygen Flow Rate 01/18/22 03:00 01/18/22 03:15 01/18/22 03:15 Pulse Rate 81 80 Respiratory Rate 11 L 10 L Blood Pressure 165/129 H Pulse Oximetry 98 98 Oxygen Delivery Method Oxygen Flow Rate 01/18/22 03:30 01/18/22 03:30 01/18/22 03:45 Pulse Rate 74 Respiratory Rate 12 Blood Pressure 163/126 H 164/111 H Pulse Oximetry 97 Oxygen Delivery Method Oxygen Flow Rate 01/18/22 03:45 01/18/22 04:00 01/18/22 04:00 Pulse Rate 82 78 Respiratory Rate 12 13 Blood Pressure 172/116 H Pulse Oximetry 96 96 Oxygen Delivery Method Oxygen Flow Rate 01/18/22 04:15 01/18/22 04:15 01/18/22 04:30 Pulse Rate 78 Respiratory Rate 13 Blood Pressure 170/106 H 171/96 H Pulse Oximetry 96 Oxygen Delivery Method Oxygen Flow Rate 01/18/22 04:30 01/18/22 04:46 01/18/22 04:46 Pulse Rate 74 90 Respiratory Rate 13 28 H Blood Pressure 174/97 H Pulse Oximetry 95 94 Oxygen Delivery Method Oxygen Flow Rate 01/18/22 05:00 01/18/22 05:00 01/18/22 05:15 Pulse Rate 80 Respiratory Rate 14 Blood Pressure 170/109 H 157/110 H Pulse Oximetry 98 Oxygen Delivery Method Oxygen Flow Rate 01/18/22 05:15 01/18/22 05:30 01/18/22 05:30 Pulse Rate 84 77 Respiratory Rate 13 13 Blood Pressure 177/108 H Pulse Oximetry 98 98 Oxygen Delivery Method Oxygen Flow Rate 01/18/22 05:45 01/18/22 05:45 01/18/22 04:00 Pulse Rate 83 Respiratory Rate 15 Blood Pressure 162/108 H Pulse Oximetry Oxygen Delivery Method Room Air Oxygen Flow Rate 01/18/22 06:00 01/18/22 06:00 01/18/22 06:15 Pulse Rate 79 Respiratory Rate 13 Blood Pressure 180/125 H 178/109 H Pulse Oximetry Oxygen Delivery Method Oxygen Flow Rate 01/18/22 06:15 01/18/22 07:00 01/18/22 07:00 Pulse Rate 80 72 Respiratory Rate 13 15 Blood Pressure 184/108 H Pulse Oximetry 98 Oxygen Delivery Method Oxygen Flow Rate 01/18/22 08:00 01/18/22 08:00 01/18/22 09:00 Pulse Rate 86 Respiratory Rate 19 Blood Pressure 132/88 144/91 H Pulse Oximetry 97 Oxygen Delivery Method Oxygen Flow Rate 0 01/18/22 09:00 01/18/22 10:00 01/18/22 10:00 Pulse Rate 76 78 Respiratory Rate 14 9 L Blood Pressure 134/97 H Pulse Oximetry Oxygen Delivery Method Oxygen Flow Rate Oxygen Delivery Method Room Air Oxygen Flow Rate 0 Narrative Exam Narrative: surrogate for exam is meccaamry team Assessment & Plan Assessment & Plan narrative: Etoh withdrawal HTN 1st metacarpal fx PICC malfunction deltirum tremens Hypertensive urgency -- Severe alcohol withdrawal with impending DTs -- precedex infusion -- Cont librium and ativan as needed -- valium IV prn -- oxycodone prn -- cardene gtt for bp control -- On MTV, thiamine, and folic acid -- Encourage IS and OOB as tolerated -- Monitor closely for respiratory depression -- On metoprolol -- Goal SBP < 140 -- Secondary to BM suppression from alcoholism -- Daily CBC -- Goal Hb > 7 -- Goal BS < 180 -- Ortho recs appreciated -- Pain control as needed D/w Hospitalist and RN at bedside. Time Spent With Patient Critical Care time: I spent a total of [32] minutes of critical care time on this patient's care today; this time is exclusive of procedural time.
[2022-01-18] MEDS: diazePAM 10 MG/2 ML SYRINGE IV ×3 (12:03→23:03)
[2022-01-18] MEDS: dexmedeTOMIDine in 0.9 % NaCL 400 MCG/100 ML PLAST..BAG 55.565 MCG IV ×7 (13:08→23:44)
[2022-01-18] MEDS: NICARDIPINE 25 MG in SODIUM CHLORIDE 0.9% 240 ML 12.5 MG IV (19:44)
--- NOTE | 2022-01-18 20:28 | PM.ICURNDS ---
- Date Patient Seen: 01/18/22 Time Patient Seen: 20:30 :: This patient was seen via real time interactive two-way audiovisual telecommunication. Note: Remains on precedex at 2 mcg and started on cardene infusion for BP control. Cont ativan and librium PO but patient is refusing oral meds. Cont titrating precedex to maintain RASS goal -1 to 0. D/w RN at bedside.
--- NOTE | 2022-01-18 23:21 | PM.EVENT ---
Event Note Date Patient Seen: 01/18/22 Time Patient Seen: 23:21 Event Note (Rapid Response, Code, or fall): Notified by RN patient is extremely agitated despite being on precedex 2 mcg. He refused to take oral librium. Recommend haldol 5 mg IV once and if failed then will consider trial of geodon. Monitor QTc on telemetry. D/w Lupe and RN at bedside.
[2022-01-18] MEDS: HALOPERIDOL 5 MG/ML VIAL IV (23:28)
[2022-01-19] VITALS (66 sets, daily range): BP systolic 123–211; BP diastolic 67–110; PULSE 67–83; RESP 11–26; TEMP 35.6–36.1; O2SAT 86–100
[2022-01-19] MEDS: dexmedeTOMIDine in 0.9 % NaCL 400 MCG/100 ML PLAST..BAG 55.565 MCG IV ×7 (01:22→11:35)
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
[2022-01-19] MEDS: MORPHINE 2 MG/ML INJ IV (03:39)
[2022-01-19] MEDS: diazePAM 10 MG/2 ML SYRINGE IV ×5 (04:28→17:16)
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
[2022-01-19] MEDS: NICOTINE 7 MG PATCH TOP (08:58)
[2022-01-19] MEDS: HEPARIN 5,000 UNIT/ML VIAL 5000 UNIT SUBCUT ×2 (08:59→20:59)
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
[2022-01-19] MEDS: ALTEPLASE 2 MG/2 ML VIAL IV (10:14)
--- NOTE | 2022-01-19 10:15 | P.TELICUPN_ITS ---
Subjective Subjective Consent obtained for tele-signal processing engineer care: Yes Patient Location: ICU Provider location (State): [place] Other participants/roles: RN Interval history: Patient remains on precedex at 2mcg/kg. He is mroe directable today, issues with PICC line flushing well./ Current Medications Current Medications Medications: Home Medications clonazepam 1 mg tablet 1 mg PO BID ##21 01/23/12 [Rx Confirmed 01/15/22] atenolol 100 mg tablet (Tenormin) 100 mg PO Q DAY ##10 06/06/12 [Rx Confirmed 01/15/22] Visit Medications (administered) Generic Name Dose Route Start Last Admin Trade Name Freq PRN Reason Stop Dose Admin Acetaminophen 650 mg 01/15/22 02:25 01/17/22 06:20 Acetaminophen 325 Mg Tablet PO 650 mg Q6HR PRN Administration Fever/Mild Pain (1-3) Hydrocodone Bitart/Acetaminophen 1 tab 01/15/22 03:04 01/17/22 11:48 Hydrocodone/Acet 5/325 Tablet PO 1 tab Q6HR PRN Administration Pain, Moderate (4-6) Chlordiazepoxide HCl 50 mg 01/15/22 12:00 01/19/22 07:00 Chlordiazepoxide 25 Mg Capsule PO Not Given Q6HR [facility]ERETTE Diazepam 10 mg 01/17/22 20:45 01/19/22 07:09 Diazepam 10 Mg/2 Ml Syringe IV 10 mg Q1H PRN Administration Agitation Diphenhydramine HCl 25 mg 01/15/22 03:04 01/17/22 11:48 Diphenhydramine 25 Mg Tablet PO 25 mg Q6HR PRN Administration Itching Folic Acid 1 mg 01/15/22 09:00 01/19/22 08:50 Folic Acid 1 Mg Tablet PO Not Given DAILY [facility]TE Heparin Sodium (Porcine) 5,000 unit 01/15/22 09:00 01/19/22 08:59 Heparin 5,000 Unit/Ml Vial SUBCUT 5,000 unit BID EVERETTE Administration Heparin Sodium (Porcine) 50 unit 01/17/22 23:15 01/19/22 08:50 Heparin Flush (Cl/Picc/Mid-Line) 50 Unit/5 Ml Syringe IV Not Given BID [facility]TE Sodium Chloride 1,000 mls @ 100 mls/hr 01/15/22 09:00 01/16/22 11:28 Normal Saline 0.9% IV 02/14/22 18:59 Infused CONT [facility]ETTE Infusion dexmedeTOMIDine in 0.9 % NaCL 400 mcg in 100 mls @ 5.557 mls/hr 01/16/22 14:15 01/19/22 09:26 Precedex IV 2 mcg/kg/hr TITRATE [facility]TE 55.565 mls/hr Administration Protocol 0.2 MCG/KG/HR Nicardipine HCl 25 mg/ Sodium 250 mls @ 50 mls/hr 01/17/22 23:45 01/18/22 20:00 Chloride IV 1.5 mg/hr TITRATE [facility]ERETTE 15 mls/hr Titration Protocol 5 MG/HR Labetalol HCl 20 mg 01/17/22 20:53 01/17/22 20:57 Labetalol 20 Mg/4 Ml Syringe IV 20 mg Q4HR PRN Administration SBP > 160 Lorazepam 0 mg 01/15/22 08:47 01/17/22 08:20 Lorazepam 1 Mg Tablet PO 2 mg CIWAPRN PRN Administration Alcohol Withdrawal Protocol Metoprolol Tartrate 75 mg 01/15/22 09:00 01/19/22 08:51 Metoprolol Ir 25 Mg Tablet PO Not Given BID [facility]TE Metoprolol Tartrate 5 mg 01/17/22 22:07 01/17/22 22:48 Metoprolol Tartrate 5 Mg/5 Ml Inj IV 01/19/22 22:16 5 mg Q15MIN PRN Administration Hypertension Morphine Sulfate 2 mg 01/18/22 16:11 01/19/22 03:39 Morphine 2 Mg/Ml Inj IV 2 mg Q4HR PRN Administration Pain, Moderate (4-6) Multivitamins 1 tab 01/15/22 09:00 01/19/22 08:51 Multivitamin 1 Tablet PO Not Given DAILY [facility]ERETTE Nicotine 7 mg 01/15/22 09:00 01/19/22 08:58 Nicotine 7 Mg Patch TOP 7 mg DAILY EVERETTE Administration Objective Labs Result Diagrams: 01/15/22 07:45 01/15/22 07:45 Exam Vital Signs (past 8 hours): - 01/19/22 04:00 01/19/22 02:34 01/19/22 02:34 Temperature Pulse Rate 76 Respiratory Rate 15 Blood Pressure 155/96 H Pulse Oximetry 100 Oxygen Delivery Method Room Air 01/19/22 03:00 01/19/22 03:16 01/19/22 03:16 Temperature Pulse Rate 76 75 Respiratory Rate 14 12 Blood Pressure 178/110 H Pulse Oximetry 100 99 Oxygen Delivery Method 01/19/22 03:21 01/19/22 03:22 01/19/22 03:22 Temperature Pulse Rate 75 74 Respiratory Rate 14 14 Blood Pressure 149/95 H Pulse Oximetry 100 100 Oxygen Delivery Method 01/19/22 03:30 01/19/22 03:30 01/19/22 04:00 Temperature Pulse Rate 77 Respiratory Rate 14 Blood Pressure 144/94 H 151/95 H Pulse Oximetry 100 Oxygen Delivery Method 01/19/22 04:00 01/19/22 04:30 01/19/22 04:30 Temperature 96.2 F L Pulse Rate 78 75 Respiratory Rate 13 13 Blood Pressure 153/98 H Pulse Oximetry 100 100 Oxygen Delivery Method 01/19/22 05:00 01/19/22 05:04 01/19/22 05:04 Temperature Pulse Rate 76 76 Respiratory Rate 17 15 Blood Pressure 146/95 H Pulse Oximetry 99 100 Oxygen Delivery Method 01/19/22 05:30 01/19/22 05:30 01/19/22 06:00 Temperature Pulse Rate 75 Respiratory Rate 16 Blood Pressure 157/99 H 184/97 H Pulse Oximetry 100 Oxygen Delivery Method 01/19/22 06:00 01/19/22 06:35 01/19/22 06:35 Temperature Pulse Rate 71 76 Respiratory Rate 15 24 Blood Pressure 140/101 H Pulse Oximetry 99 97 Oxygen Delivery Method 01/19/22 07:00 01/19/22 07:00 01/19/22 07:30 Temperature Pulse Rate 75 Respiratory Rate 20 Blood Pressure 145/99 H 151/97 H Pulse Oximetry 98 Oxygen Delivery Method 01/19/22 07:30 01/19/22 08:00 01/19/22 08:00 Temperature Pulse Rate 75 75 Respiratory Rate 15 15 Blood Pressure 163/109 H Pulse Oximetry 99 100 Oxygen Delivery Method 01/19/22 08:30 01/19/22 08:30 01/19/22 09:00 Temperature Pulse Rate 75 77 Respiratory Rate 14 12 Blood Pressure 159/91 H Pulse Oximetry 98 Oxygen Delivery Method 01/19/22 09:01 01/19/22 09:01 01/19/22 09:10 Temperature 96.0 F L Pulse Rate 75 Respiratory Rate 11 L Blood Pressure 123/67 Pulse Oximetry 100 Oxygen Delivery Method Oxygen Delivery Method Room Air Oxygen Flow Rate 0 Narrative Exam Narrative: surrogate for exam is primary team Assessment & Plan Assessment & Plan narrative: Etoh withdrawal HTN 1st metacarpal fx PICC malfunction deltirum tremens Hypertensive urgency -- Severe alcohol withdrawal with impending DTs -- precedex infusion -- Cont librium and ativan as needed -- valium IV prn - would give more frequenly if he cannot take his librium -- oxycodone prn -- cardene gtt for bp control -- Monitor closely for respiratory depression -- Goal SBP < 140 -- Daily CBC -- Goal Hb > 7 -- Goal BS < 180 -- Ortho recs appreciated -- Pain control as needed Time Spent With Patient Critical Care time: I spent a total of [32] minutes of critical care time on this patient's care today; this time is exclusive of procedural time.
[2022-01-19] MEDS: SODIUM CHLORIDE 0.9% IV ×2 (13:15→22:42)
[2022-01-19] MEDS: DEXMEDETOMIDINE HCL IV ×2 (13:15→22:42)
[2022-01-19] MEDS: NICARDIPINE 25 MG in SODIUM CHLORIDE 0.9% 240 ML 5 MG IV (13:43)
--- NOTE | 2022-01-19 21:00 | PM.ICURNDS ---
- :: This patient was seen via real time interactive two-way audiovisual telecommunication. patient remains on precedex gtt, much mroe calm today. IV access remains an issue as well as obtiaining labs. Cath liat given earlier to PICC line did not releive obstruction. Will cont sedation with precedex and order a midline. He has remain NPO for almost 4 days now, and will need to address his nutrition with TF or PPN depending on his RASS
[2022-01-20] VITALS (49 sets, daily range): BP systolic 102–171; BP diastolic 56–105; PULSE 64–110; RESP 12–34; TEMP 35.9–37.1; O2SAT 82–100
[2022-01-20] MEDS: diazePAM 10 MG/2 ML SYRINGE IV ×4 (02:09→23:31)
[2022-01-20] MEDS: MORPHINE 2 MG/ML INJ IV (03:00)
[2022-01-20] MEDS: chlordiazePOXIDE 25 MG CAPSULE 50 MG PO ×4 (05:50→23:18)
[2022-01-20] MEDS: SODIUM CHLORIDE 0.9% IV (07:43)
[2022-01-20] MEDS: DEXMEDETOMIDINE HCL IV (07:43)
[2022-01-20] MEDS: NICARDIPINE 25 MG in SODIUM CHLORIDE 0.9% 240 ML 10 MG IV (07:44)
[2022-01-20] MEDS: HEPARIN 5,000 UNIT/ML VIAL 5000 UNIT SUBCUT ×2 (08:31→20:21)
[2022-01-20] MEDS: METOPROLOL IR 25 MG TABLET 75 MG PO ×2 (08:32→20:22)
[2022-01-20] MEDS: MULTIVITAMIN 1 TABLET 1 TAB PO (08:32)
[2022-01-20] MEDS: FOLIC ACID 1 MG TABLET PO (08:32)
--- NOTE | 2022-01-20 08:48 | PM.PN.EICU ---
Subjective Subjective Consent obtained for tele-pipefitter helper care: Yes Patient Location: ICU Provider location (State): [place] Other participants/roles: Indu MCKEON Interval history: Patient admitted for alcohol withdrawal on four points restraints. On precedex 2 mcg and cardene 10 mg/hr. Received 2 doses of valium overnight. Current RASS -2. Unable to obtain ROS due to acuity condition. Current Medications Current Medications Medications: Home Medications clonazepam 1 mg tablet 1 mg PO BID ##21 01/23/12 [Rx Confirmed 01/15/22] atenolol 100 mg tablet (Tenormin) 100 mg PO Q DAY ##10 06/06/12 [Rx Confirmed 01/15/22] Visit Medications (administered) Generic Name Dose Route Start Last Admin Trade Name Freq PRN Reason Stop Dose Admin Acetaminophen 650 mg 01/15/22 02:25 01/17/22 06:20 Acetaminophen 325 Mg Tablet PO 650 mg Q6HR PRN Administration Fever/Mild Pain (1-3) Hydrocodone Bitart/Acetaminophen 1 tab 01/15/22 03:04 01/17/22 11:48 Hydrocodone/Acet 5/325 Tablet PO 1 tab Q6HR PRN Administration Pain, Moderate (4-6) Chlordiazepoxide HCl 50 mg 01/15/22 12:00 01/20/22 05:50 Chlordiazepoxide 25 Mg Capsule PO 50 mg Q6HR [facility] Administration Diazepam 10 mg 01/17/22 20:45 01/20/22 07:30 Diazepam 10 Mg/2 Ml Syringe IV 10 mg Q1H PRN Administration Agitation Diphenhydramine HCl 25 mg 01/15/22 03:04 01/17/22 11:48 Diphenhydramine 25 Mg Tablet PO 25 mg Q6HR PRN Administration Itching Folic Acid 1 mg 01/15/22 09:00 01/20/22 08:32 Folic Acid 1 Mg Tablet PO 1 mg DAILY [facility]TE Administration Heparin Sodium (Porcine) 5,000 unit 01/15/22 09:00 01/20/22 08:31 Heparin 5,000 Unit/Ml Vial SUBCUT 5,000 unit BID [facility] Administration Heparin Sodium (Porcine) 50 unit 01/17/22 23:15 01/20/22 08:32 Heparin Flush (Cl/Picc/Mid-Line) 50 Unit/5 Ml Syringe IV Not Given BID [facility] Sodium Chloride 1,000 mls @ 100 mls/hr 01/15/22 09:00 01/16/22 11:28 Normal Saline 0.9% IV 02/14/22 18:59 Infused CONT [facility]TE Infusion Nicardipine HCl 25 mg/ Sodium 250 mls @ 50 mls/hr 01/17/22 23:45 01/20/22 07:44 Chloride IV 1 mg/hr TITRATE [facility]TE 10 mls/hr Administration Protocol 5 MG/HR Dexmedetomidine HCl 2,000 mcg/ 500 mls @ 55.565 mls/hr 01/19/22 11:30 01/20/22 07:43 Sodium Chloride IV 2 mcg/kg/hr TITRATE [facility]TE 55.565 mls/hr Administration Protocol 2 MCG/KG/HR Labetalol HCl 20 mg 01/17/22 20:53 01/17/22 20:57 Labetalol 20 Mg/4 Ml Syringe IV 20 mg Q4HR PRN Administration SBP > 160 Lorazepam 0 mg 01/15/22 08:47 01/17/22 08:20 Lorazepam 1 Mg Tablet PO 2 mg CIWAPRN PRN Administration Alcohol Withdrawal Protocol Metoprolol Tartrate 75 mg 01/15/22 09:00 01/20/22 08:32 Metoprolol Ir 25 Mg Tablet PO 75 mg BID [facility]ETTE Administration Morphine Sulfate 2 mg 01/18/22 16:11 01/20/22 03:00 Morphine 2 Mg/Ml Inj IV 2 mg Q4HR PRN Administration Pain, Moderate (4-6) Multivitamins 1 tab 01/15/22 09:00 01/20/22 08:32 Multivitamin 1 Tablet PO 1 tab DAILY [facility]TE Administration Nicotine 7 mg 01/15/22 09:00 01/19/22 08:58 Nicotine 7 Mg Patch TOP 7 mg DAILY [facility]ETTE Administration Objective Labs Result Diagrams: 01/15/22 07:45 01/15/22 07:45 Exam Vital Signs (past 8 hours): - 01/20/22 01:00 01/20/22 01:00 01/20/22 03:00 Temperature Pulse Rate 71 Respiratory Rate 16 Blood Pressure 143/82 H Pulse Oximetry 99 Oxygen Delivery Method Room Air Oxygen Flow Rate 01/20/22 01:30 01/20/22 01:30 01/20/22 02:00 Temperature Pulse Rate 71 Respiratory Rate 18 Blood Pressure 146/83 H 146/87 H Pulse Oximetry 99 Oxygen Delivery Method Oxygen Flow Rate 01/20/22 02:00 01/20/22 02:30 01/20/22 02:30 Temperature Pulse Rate 69 67 Respiratory Rate 16 20 Blood Pressure 150/84 H Pulse Oximetry 99 95 Oxygen Delivery Method Oxygen Flow Rate 01/20/22 03:00 01/20/22 03:00 01/20/22 03:30 Temperature Pulse Rate 72 Respiratory Rate 18 Blood Pressure 155/94 H 162/89 H Pulse Oximetry 100 Oxygen Delivery Method Oxygen Flow Rate 01/20/22 03:30 01/20/22 04:00 01/20/22 04:00 Temperature 96.6 F L Pulse Rate 70 68 Respiratory Rate 16 17 Blood Pressure 154/87 H Pulse Oximetry 100 99 Oxygen Delivery Method Oxygen Flow Rate 01/20/22 04:30 01/20/22 04:30 01/20/22 05:00 Temperature Pulse Rate 69 Respiratory Rate 19 Blood Pressure 149/85 H 160/84 H Pulse Oximetry 99 Oxygen Delivery Method Oxygen Flow Rate 01/20/22 05:00 01/20/22 05:29 01/20/22 05:30 Temperature Pulse Rate 69 75 Respiratory Rate 15 18 Blood Pressure 120/80 Pulse Oximetry 97 100 Oxygen Delivery Method Oxygen Flow Rate 01/20/22 05:30 01/20/22 05:32 01/20/22 05:32 Temperature Pulse Rate 77 76 Respiratory Rate 20 17 Blood Pressure 153/82 H Pulse Oximetry 98 100 Oxygen Delivery Method Oxygen Flow Rate 01/20/22 06:00 01/20/22 06:00 01/20/22 06:30 Temperature Pulse Rate 74 Respiratory Rate 15 Blood Pressure 139/85 152/90 H Pulse Oximetry 100 Oxygen Delivery Method Oxygen Flow Rate 01/20/22 06:30 01/20/22 07:00 01/20/22 07:00 Temperature Pulse Rate 71 69 Respiratory Rate 16 13 Blood Pressure 151/89 H Pulse Oximetry 100 99 Oxygen Delivery Method Oxygen Flow Rate 01/20/22 08:00 Temperature 97.7 F Pulse Rate 74 Respiratory Rate 19 Blood Pressure 164/99 H Pulse Oximetry 94 Oxygen Delivery Method Oxygen Flow Rate 0 Oxygen Delivery Method Room Air Oxygen Flow Rate 0 Narrative Exam Narrative: On four points restraints; calm and sleepy Quality TeleICU VTE Deep Vein Thrombosis/Pulmonary Embolism Present on Admission: No Assessment & Plan Assessment & Plan narrative: NEURO: # Alcohol withdrawal -- Severe alcohol withdrawal -- On precedex infusion -- Cont librium and ativan as needed -- ON valium as needed for RASS goal >+1 -- On MTV, thiamine, and folic acid # Acute encephalopathy -- Secondary to alcohol withdrawal -- Other contriuting factor include behavioral vs delirium -- Cont alcohol withdrawal rx as above -- Cont frequent reorientation ? RESP: -- On room air -- Encourage IS and OOB as tolerated -- Monitor closely for respiratory depression CVS: # HTN -- Refusing oral BP meds -- On cardene 10 mg/hr -- Encourage patient to take oral BP meds -- Goal SBP < 140 HEME: # Anemia -- Secondary to BM suppression from alcoholism -- Daily CBC -- Goal Hb > 7 ENDO: -- Goal BS < 180 VTE: Heaprin SQ SUP: Not indicated Time Spent With Patient Critical Care time: I spent a total of 32 minutes of critical care time on this patient's care today; this time is exclusive of procedural time.
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
[2022-01-20] MEDS: NICOTINE 7 MG PATCH TOP (10:42)
[2022-01-20] MEDS: QUETIAPINE 25 MG TABLET PO ×3 (12:31→20:22)
[2022-01-20 13:29] LABS: Add Manual Diff / Slide Review NO; Basophils Absolute Auto 100 /uL (0-100); Basophils Percent Auto 1.1 % (0-2); Eosinophils Absolute Auto 300 /uL (0-450); Eosinophils Percent Auto 3.1 % (2-4); Hematocrit 42.2 % (41-53); Hemoglobin 14.4 g/dL (13.5-17.5); Lymphocytes Absolute Auto 1600 /uL (1100-4500); Lymphocytes Percent Auto 19.1 % (25-40); Mean Corpuscular HGB Conc 34.2 % (30-36); Mean Corpuscular Hemoglobin 30.3 PG (26-34); Mean Corpuscular Volume 88.7 fL (80-100); Monocytes Absolute Auto 500 /uL (0-900); Monocytes Percent Auto 5.7 % (3-14); Neutrophils Absolute Auto 5800 /uL (1500-7000); Platelet Count 321 X10^3/uL (150-400); Red Blood Cell Count 4.75 X10^6/uL (4.5-5.9); Red Cell Distribution Width 15.7 % (11.6-14.8); White Blood Cell Count 8.2 X10^3/uL (4.5-11.0)
[2022-01-20 13:43] LABS: Alanine Aminotransferase 13 IU/L (<50); Albumin 3.8 g/dL (3.5-5.0); Albumin Globulin Ratio 1.3 (1.0-2.8); Alkaline Phosphatase 91 U/L (38-126); Aspartate Aminotransferase 25 IU/L (17-59); BUN Creatinine Ratio 9.8 (6-22); Bilirubin Total 0.3 mg/dL (0.2-1.3); Blood Urea Nitrogen 6 mg/dL (9-20); Calcium 8.7 mg/dL (8.4-10.2); Carbon Dioxide 27 mmol/L (22-32); Chloride 101 mmol/L (98-107); Estimated Glomerular Filt Rate > 60 mL/min (>60); Glucose 147 mg/dL (70-100); HEMOLYSIS 21 (0-50); Magnesium 1.6 mg/dL (1.6-2.3); Potassium 3.4 mmol/L (3.4-5.1); Sodium 137 mmol/L (137-145); Total Protein 6.8 g/dL (6.3-8.2)
[2022-01-20] MEDS: MAGNESIUM CHLORIDE 64 MG TABLET 128 MG PO (15:05)
[2022-01-20] MEDS: POTASSIUM CHLORIDE 20 MEQ TAB 40 MEQ PO (15:05)
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
--- NOTE | 2022-01-20 20:21 | PM.ICURNDS ---
- Date Patient Seen: 01/20/22 Time Patient Seen: 20:21 :: This patient was seen via real time interactive two-way audiovisual telecommunication. Note: Patient came off precedex and cardene infusion. He is AAOX3 and following commands. Off four points restraints. Stable to downgrade to floor. D/w RN.
[2022-01-20] MEDS: HYDROCODONE/ACET 5/325 TABLET 1 TAB PO (20:22)
[2022-01-21] VITALS (19 sets, daily range): BP systolic 121–169; BP diastolic 70–105; PULSE 64–125; RESP 18–26; TEMP 36.2–37.8; O2SAT 96–98
[2022-01-21] MEDS: MORPHINE 2 MG/ML INJ IV ×2 (02:46→13:41)
[2022-01-21] MEDS: ACETAMINOPHEN 325 MG TABLET 650 MG PO (02:49)
[2022-01-21] MEDS: diphenhydrAMINE 25 MG TABLET PO (03:16)
--- NOTE | 2022-01-21 03:54 | PC.NURSE ---
Addendum entered by Connie Haddad R.N. 01/21/22 06:31: As preceptor, I agree with Malgorzata bulb tester, interventions, and documentation. Original Note: Pt was restless but calm and cooperative during the night. Valium, morphine, tylenol and Benadryl were given throughout the night. Pt HR started to spike and become inconsistent (ranging from low 100s to 160s). Provider was called and 5mg IV metoprolol, coupled with the AM dose of metoprolol 30 mins after IV dose given was ordered. Pt put in a splint due to previous wrapping agitating him.
[2022-01-21] MEDS: METOPROLOL TARTRATE 5 MG/5 ML INJ IV (04:05)
[2022-01-21] MEDS: METOPROLOL IR 25 MG TABLET 75 MG PO (04:32)
[2022-01-21] MEDS: chlordiazePOXIDE 25 MG CAPSULE 50 MG PO (05:44)
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
[2022-01-21] MEDS: HEPARIN 5,000 UNIT/ML VIAL 5000 UNIT SUBCUT ×2 (08:19→22:01)
[2022-01-21] MEDS: FOLIC ACID 1 MG TABLET PO (08:19)
[2022-01-21] MEDS: MULTIVITAMIN 1 TABLET 1 TAB PO (08:20)
[2022-01-21] MEDS: QUETIAPINE 25 MG TABLET PO ×2 (08:20→21:59)
[2022-01-21] MEDS: HYDROCODONE/ACET 5/325 TABLET 1 TAB PO ×2 (08:22→23:36)
[2022-01-21] MEDS: LORazepam 1 MG TABLET PO (08:29)
--- NOTE | 2022-01-21 09:33 | PC.NURSE ---
Addendum entered by Lupe Garcia R.N. 01/21/22 18:54: 1825-Noticed Pt picking and chewing at PICC line to LUE. Partially severed PICC line, with active bleeding. Pressure applied and held distal end of PICC, removed all of PICC accounted for. Clot to distal end on removal. Pt cooperative during this event. Dressing in place Addendum entered by Lupe Garcia R.N. 01/21/22 18:54: 1500-Pt has been noncompliant with tele. Removed for increased agitation. Dr Cavazos aware. Addendum entered by Lupe Garcia R.N. 01/21/22 18:51: Pt has been cooperative this shift, occasional anger outbursts/swearing, redirectable with staff intervention. Occasionally requesting pain control for thumb. Splint on ~50% of shift. Taking meds without difficulty. Noted small continued loose stools, suspicious for C-diff, will obtain sample for lab. Pt has removed hats for specimen collection, and will attempt again. Original Note: Am shift Pt alert to self and cooperative with all care taking meds without difficulty. Requesting shower. Assist to BR 1PA. Loose stool x2 this AM. PICC remains sluggish to flush.CIWA of 11 mid AM. PRN ativan, pain to L thumb from fracture. Brace in place.
[2022-01-21] MEDS: diazePAM 10 MG/2 ML SYRINGE IV (11:23)
[2022-01-21] MEDS: METOPROLOL IR 50 MG TABLET 100 MG PO (22:00)
[2022-01-21] MEDS: chlordiazePOXIDE 25 MG CAPSULE PO (22:00)
[2022-01-22 01:00] VITALS: BP 124/70; PULSE 92; RESP 18; TEMP 36.9; O2SAT 95
[2022-01-22 05:00] VITALS: BP 132/87; PULSE 91; RESP 18; TEMP 37.1; O2SAT 94
[2022-01-22 07:50] VITALS: BP 142/90; PULSE 105; RESP 17; TEMP 36.7; O2SAT 97
[2022-01-22] MEDS: QUETIAPINE 25 MG TABLET PO (08:33)
[2022-01-22] MEDS: chlordiazePOXIDE 25 MG CAPSULE PO (08:33)
[2022-01-22] MEDS: HEPARIN 5,000 UNIT/ML VIAL 5000 UNIT SUBCUT (08:33)
[2022-01-22] MEDS: MULTIVITAMIN 1 TABLET 1 TAB PO (08:33)
[2022-01-22] MEDS: FOLIC ACID 1 MG TABLET PO (08:33)
[2022-01-22] MEDS: METOPROLOL IR 50 MG TABLET 100 MG PO (08:33)
[2022-01-22] MEDS: HYDROCODONE/ACET 5/325 TABLET 1 TAB PO (10:12)
[2022-01-22 12:24] VITALS: BP 128/87; PULSE 78; RESP 20; TEMP 37.2; O2SAT 96
--- NOTE | 2022-01-22 13:17 | PC.NURSE ---
Addendum entered by Lupe Garcia R.N. 01/22/22 14:35: 1200-Pt starting to amp up, pacing and asking for chewing tabacco. Pt displeased to hear that he would not be allowed back if he leaves. Update to Dr Klein, who will write dc orders as Pt is medically stable and would like to go [facility] and get a drink Paperwork signed, and patient taken via w/c to ER entrance and ambulating on sidewalk toward [address]. Pt ambulating and waves to this RN. Original Note: Am shift Pt is communicative this am. Speech is more clear, and Pt is able to make his needs known. A/o x2-3, forgetful about which hospital he is currently staying at. Agitation at times, but very redirectable. Swearing at times, but no bouts of anger, looking for his cards and shoes this am. Pacing in the room at times this am. Eating all meals, packing clothing up. Pt reports desire to stay in hospital. Gait steadier than previously assesment. CM into patient for d/c planning needs. Pt makes statements of I am not sure if this is gonna stick, but I am not drinking and it's been almost 2 weeks Continue to work on placement or Patient leaving hospital.
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
--- NOTE | 2022-01-22 15:59 | CM.DPNOTE ---
DC Note According to Dr Klein, patient is medically stable for DC today Met w/patient, reviewed DCP. Patient A+O and able to have lengthy conversation Patient states he has been living in the [facility] and plans to return upon DC. Discussed housing and basic needs resources; patient says he wants to stay sober but will not accept resources today to assist in sobriety/RC treatment and recovery Patient says he has an EBT card for food and sometimes goes to [employer] to access [employer] dinners Suggested motel voucher, however, this resource is reserved for those who are sober. patient declines Suggested taxi voucher to [place] where he could access [facility] for the night, patient declines. Asked if patient had any suggestions for this [employer] as to how this proposal manager writer could be of assistance today? No response Plan: DC this afternoon, independently, no vehicle or home currently per patient SHAD Carney
== END 2022-01-22 14:41 | disposition home or self-care (01) | DRG 897 ==
LOC: ED 01-15 01:17 → AC 01-15 02:18 → ICU 01-15 02:50 → AC 01-17 13:00
PROVIDERS: Internal Medicine Pulmonary Disease; Admitting Provider Internal Medicine; Emergency Provider Emergency Medicine; PCP Surgery; Referring Provider Internal Medicine; Visit Provider Internal Medicine
DX: F10.231 Alcohol dependence with withdrawal delirium (principal); S62.212A Bennett's fracture, left hand, initial encounter for closed fracture; S62.306A Unspecified fracture of fifth metacarpal bone, right hand, initial encounter for closed fracture; D64.89 Other specified anemias; I48.0 Paroxysmal atrial fibrillation; Y04.2XXA Assault by strike against or bumped into by another person, initial encounter; Y92.230 Patient room in hospital as the place of occurrence of the external cause; I10 Essential (primary) hypertension; Z72.0 Tobacco use; Z20.822 Contact with and (suspected) exposure to COVID-19; F91.9 Conduct disorder, unspecified
CPT/HCPCS: 36415; 36569; 36592; 70450; 71045; 73130; 80048; 80053; 80305; 81003; 82550; 83690; 83735; 83880; 84484; 85025; 85610; 87635; 87797; 90792; 93005; 96361; 96365; 96375; 96376; 99285; C9803; J1630; J1642; J1644; J2270; J2560; J2997; J3360; J3490

== ENCOUNTER 2022-01-22 18:35 | Emergency (ER) | payer MEDICARE, MEDICAID, SELFPAY ==
[2022-01-15 02:19] VITALS: BMI 37.2
[2022-01-22] VITALS (8 sets, daily range): BP systolic 98–123; BP diastolic 63–82; PULSE 103–129; RESP 18–24; TEMP 37.2; O2SAT 94–100; BMI 32.3
--- NOTE | 2022-01-22 19:01 | DI.CT.S_ITS ---
PROCEDURE: CT HEAD/BRAIN WO CON INDICATIONS: found down, heavy etoh TECHNIQUE: Noncontrast 4.5 mm thick angled axial sections acquired from the foramen magnum to the vertex, with coronal and sagittal reformats. For radiation dose reduction, the following was used: automated exposure control, adjustment of mA and/or kV according to patient size. COMPARISON: [facility], CT, CT HEAD WITHOUT CONTRAST, 01/12/2022, 13:14. [facility], CT, CT HEAD/BRAIN WO CON, 01/14/2022, 20:56. FINDINGS: Image quality: Excellent. CSF spaces: Basal cisterns are patent. No extra-axial fluid collections. The ventricles are symmetric in size and shape. Brain: No intracranial bleeds or masses. There is cerebral volume loss for age, with resultant ventricular and sulcal prominence. There are periventricular and deep white matter chronic small vessel ischemic changes. There is intracranial internal carotid artery atherosclerosis. Skull and face: Calvarium and visualized facial bones appear intact, without suspicious lesions. Sinuses: Mild left maxillary sinus mucosal thickening. Mastoids are clear. IMPRESSION: 1. No acute intracranial abnormalities. 2. Cerebral volume loss and chronic microvascular ischemic changes. Dictated by: Amaya Young M.D. on 01/22/2022 at 19:42 Approved by: Amaya Young M.D. on 01/22/2022 at 19:44
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
[2022-01-22] MEDS: SODIUM CHLORIDE 0.9% 1,000 ML 1000 ML IV (19:30)
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
--- NOTE | 2022-01-22 19:36 | PC.NURSE ---
Hand off to Lulú MCKEON, nurse aware vitals have not been crossing over regularly from the in-room VS monitor to the EMR. Advised to verify VS and document as needed.
[2022-01-22 19:55] LABS: Alanine Aminotransferase 14 IU/L (<50); Albumin 4.3 g/dL (3.5-5.0); Albumin Globulin Ratio 1.3 (1.0-2.8); Alkaline Phosphatase 85 U/L (38-126); Aspartate Aminotransferase 24 IU/L (17-59); BUN Creatinine Ratio 9.5 (6-22); Bilirubin Total 0.3 mg/dL (0.2-1.3); Blood Urea Nitrogen 8 mg/dL (9-20); Carbon Dioxide 23 mmol/L (22-32); Chloride 102 mmol/L (98-107); Estimated Glomerular Filt Rate > 60 mL/min (>60); Ethanol (ETOH) 229 mg/dL; Globulin 3.3 g/dL (1.7-4.1); Glucose 104 mg/dL (70-100); HEMOLYSIS < 15 (0-50); Potassium 3.6 mmol/L (3.4-5.1); Sodium 138 mmol/L (137-145); Total Protein 7.6 g/dL (6.3-8.2)
[2022-01-22 19:58] LABS: Add Manual Diff / Slide Review NO; Basophils Absolute Auto 100 /uL (0-100); Basophils Percent Auto 1.4 % (0-2); Eosinophils Absolute Auto 200 /uL (0-450); Eosinophils Percent Auto 1.9 % (2-4); Hematocrit 39.6 % (41-53); Hemoglobin 13.5 g/dL (13.5-17.5); Lymphocytes Absolute Auto 2300 /uL (1100-4500); Lymphocytes Percent Auto 26.5 % (25-40); Mean Corpuscular HGB Conc 34.2 % (30-36); Mean Corpuscular Hemoglobin 30.3 PG (26-34); Mean Corpuscular Volume 88.6 fL (80-100); Monocytes Absolute Auto 800 /uL (0-900); Monocytes Percent Auto 9.3 % (3-14); Neutrophils Absolute Auto 5300 /uL (1500-7000); Neutrophils Percent Auto 60.9 % (50-75); Platelet Count 307 X10^3/uL (150-400); Red Blood Cell Count 4.47 X10^6/uL (4.5-5.9); White Blood Cell Count 8.6 X10^3/uL (4.5-11.0)
[2022-01-22 20:21] LABS: COVID19 -Nasal RAPID Negative (Negative)
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
[2022-01-22] MEDS: HYDROMORPHONE 1 MG INJ IV (20:34)
[2022-01-22] MEDS: QUETIAPINE 25 MG TABLET 50 MG PO (22:52)
[2022-01-22] MEDS: atenoloL 50 MG TABLET 100 MG PO (22:52)
[2022-01-23] VITALS: PULSE 105; RESP 18; O2SAT 100
[2022-01-23 01:00] VITALS: PULSE 98; RESP 16; O2SAT 95
[2022-01-23 02:00] VITALS: PULSE 97; RESP 16; O2SAT 95
--- NOTE | 2022-01-23 03:51 | PC.NURSE ---
Pt frequently rolling around in bed, pulling VS monitoring cords off and refusing to allow staff to replace them. Due to pt hostile behavior earlier, these were not replaced. Pt observed to be moving all extremities and breathing WNL.
--- NOTE | 2022-01-23 04:54 | PC.NURSE ---
asked pt if she needed to urinate pt replied I can't pee, explained to pt that she needed to try as her bladder was full, assisted pt to stand with minimal assistance to BSC and pt voided without difficulty
--- NOTE | 2022-01-23 05:47 | PC.NURSE ---
Pt woke up by this RN to assist him to change into clothes for discharge. Pt brief soiled-replaced by new brief. Pt provided with and helped changed into paper scrubs and hospital socks. Pt belongings placed in belongings bag, and pt provided with food and fresh coffee. Pt informed he has been in the ER all night and he is going to be discharged. Pt is homeless and will discharge to self care. Pt understanding of this.
== END 2022-01-23 06:37 | disposition home or self-care (01) ==
PROVIDERS: Emergency Provider Emergency Medicine; PCP Surgery
DX: F10.129 Alcohol abuse with intoxication, unspecified (principal); Y90.7 Blood alcohol level of 200-239 mg/100 ml; Z20.822 Contact with and (suspected) exposure to COVID-19
CPT/HCPCS: 36415; 70450; 80053; 80320; 85025; 87635; 93005; 96361; 96374; 99285; C9803; J1170